=== PATIENT | female | born 1935 | race Caucasian/White ===

== ENCOUNTER 2017-03-15 20:56 | Emergency (ER) | payer OTHER, MEDICARE ==
[2017-03-15 21:18] VITALS: TEMP 97.2; BMI 27.8
--- NOTE | 2017-03-15 23:24 | PDOC ---
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 Patient states that she was backing out of the elevator with her mobile scouter as it tipped over to the right and she fell. Patient is now complaining of right rib cage pain. She denies any LOC. She denies chest pain, shortness of breath, headache and dizziness. She denies fever, chills, nausea, vomit, diarrhea and constipation. She denies dysuria, frequency, urgency and hematuria. Past surgical history: Right hip chronic wound seen at the wound center by Dr. Bailey, right total hip replacement (2012) and multiple spine surgeries ( fusion and 2 laminectomy) Social history: denies toxic habits PCP - Dr. Kamaljit Flowers at [facility] Allergy - vancomycin, cefazolin <Verito Kelly - Last Filed: 03/15/17 23:31> - General Chief Complaint: Injury Stated Complaint: FALL Time Seen by Provider: 03/15/17 21:21 Past History - Past Medical History Anemia: No Asthma: No Cancer: No Cardiac Disorders: No CVA: No COPD: No CHF: No Dementia: No Diabetes: No GI Disorders: No Disorders: No HTN: No Hypercholesterolemia: Yes Liver Disease: No Seizures: No Thyroid Disease: No - Surgical History Abdominal Surgery: No Appendectomy: No Cardiac Surgery: No Cholecystectomy: No Lung Surgery: No Neurologic Surgery: Yes (BACK SURGERY X 3) Orthopedic Surgery: Yes (RIGHT HIP REPLACEMENT) - Immunization History Immunization Up to Date: No - Psycho/Social/Smoking Cessation Hx Anxiety: No Suicidal Ideation: No Smoking History: Former smoker Have you smoked in the past 12 months: No Number of Cigarettes Smoked Daily: 10 If you are a former smoker, when did you quit?: 35 YEARS AGO Information on smoking cessation initiated: No Hx Alcohol Use: No Drug/Substance Use Hx: No Substance Use Type: None <Trudy Vyas - Last Filed: 03/15/17 23:24> <ZulmaleathaVerito - Last Filed: 03/15/17 23:31> - Past Medical History Allergies/Adverse Reactions: Allergies Allergy/AdvReac Type Severity Reaction Status Date / Time vancomycin Allergy Mild Hives Verified 09/04/16 07:54 cefazolin sodium [From Ancef] AdvReac Mild Itching Verified 09/04/16 07:54 Home Medications: Ambulatory Orders Ascorbate Calcium [Vitamin C] 500 mg PO DAILY 08/22/16 Calcium Carbonate [Calcium] 1,500 mg PO DAILY 08/22/16 Fluoxetine HCl 60 mg PO DAILY 08/22/16 Iron 18 mg PO DAILY 08/22/16 Lubiprostone [Amitiza] 24 mcg PO BID 08/22/16 Oxycodone HCl/Acetaminophen [Percocet 10-325 mg Tablet] 1 each PO QID 08/22/16 Oxycodone Sr [Oxycontin] 10 mg PO TID 08/22/16 Polyethylene Glycol 3350 [Miralax 255 gm Btl -] 17 gm PO DAILY 08/22/16 Simvastatin 20 mg PO HS 08/22/16 Sulfamethoxazole/Trimethoprim [Bactrim DS -] 1 tab PO BID 08/22/16 Diazepam [Valium] 5 mg PO DAILY PRN 09/04/16 Diphenhydramine [Benadryl -] 50 mg PO ONCE 09/04/16 Famotidine [Pepcid] 20 mg PO BID #14 tablet 09/04/16 Loratadine [Claritin -] 10 mg PO DAILY #7 tablet 09/04/16 Prednisone [Deltasone -] 40 mg PO DAILY #7 tablet 09/04/16 Review of Systems - Review of Systems Able to Perform ROS?: Yes Comments:: 03/15/17 23:27 CONSTITUTIONAL: Absent: fever, chills, diaphoresis, generalized weakness, malaise, loss of appetite HEENT: Absent: rhinorrhea, nasal congestion, throat pain, throat swelling, difficulty swallowing, mouth swelling, ear pain, eye pain, visual Changes CARDIOVASCULAR: Present: right ribcage pain Absent: chest pain, syncope, palpitations, irregular heart rate, lightheadedness , peripheral edema RESPIRATORY: Absent: cough, shortness of breath, dyspnea with exertion, orthopnea, wheezing, stridor, hemoptysis GASTROINTESTINAL: Absent: abdominal pain, abdominal distension, nausea, vomiting, diarrhea, constipation, melena, hematochezia GENITOURINARY: Absent: dysuria, frequency, urgency, hesitancy, hematuria, flank pain, genital pain MUSCULOSKELETAL: Absent: myalgia, arthralgia, joint swelling SKIN: Absent: rash, itching, pallor HEMATOLOGIC/IMMUNOLOGIC: Absent: easy bleeding, easy bruising, lymphadenopathy, frequent infections ENDOCRINE: Absent: unexplained weight gain, unexplained weight loss, heat intolerance, cold intolerance NEUROLOGIC: Absent: headache, focal weakness or paresthesias, dizziness, unsteady gait, seizure, mental status changes, bladder or bowel incontinence PSYCHIATRIC: Absent: anxiety, depression, suicidal or homicidal ideation, hallucinations. <Verito Kelly - Last Filed: 03/15/17 23:31> *Physical Exam - Vital Signs Last Vital Signs Temp Pulse Resp BP Pulse Ox 97.2 F L 96 H 19 154/92 99 03/15/17 21:10 03/15/17 21:10 03/15/17 21:10 03/15/17 21:10 03/15/17 21:10 <Trudy Vyas - Last Filed: 03/15/17 23:24> - Vital Signs Last Vital Signs Temp Pulse Resp BP Pulse Ox 97.2 F L 96 H 19 154/92 99 03/15/17 21:10 03/15/17 21:10 03/15/17 21:10 03/15/17 21:10 03/15/17 21:10 - Physical Exam Comments: 03/15/17 23:28 GENERAL: Well developed, well nourished. Awake and alert. No acute distress. HEENT: Normocephalic, atraumatic. PERRLA, EOMI. No conjunctival pallor. Sclera are non- icteric. Moist mucous membranes. Oropharynx is clear. NECK: Supple. Full ROM. No JVD. Carotid pulses 2+ and symmetric, without bruits. No thyromegaly. No lymphadenopathy. CARDIOVASCULAR: Regular rate and rhythm. No murmurs, rubs, or gallops. Distal pulses are 2+ and symmetric. CHEST: (+)Right anterior rib cage pain to palpation, no crepitus PULMONARY: No evidence of respiratory distress. Lungs clear to auscultation bilaterally. No wheezing, rales or rhonchi. ABDOMINAL: Soft. Non-tender. Non-distended. No rebound or guarding. No organomegaly. Normoactive bowel sounds. MUSCULOSKELETAL: Normal range of motion at the upper joints. No bony deformities. No CVA tenderness. EXTREMITIES: (+)+2 pitting edema No cyanosis. No clubbing. No calf tenderness. SKIN: (+)Right cubitus hip ulcer. Warm and dry. Normal capillary refill. No rashes. No jaundice. NEUROLOGICAL: (+)Non ambulatory. Alert, awake, appropriate. Cranial nerves 2-12 intact. . Normal speech. PSYCHIATRIC: Cooperative. Good eye contact. Appropriate mood and affect. <Verito Kelly - Last Filed: 03/15/17 23:31> ED Treatment Course - RADIOLOGY Radiology Studies Ordered: Category Date Time Status CHEST CT WITHOUT CONTRAST [CT] Stat CT Scan 03/15/17 21:27 Taken <Trudy Vyas - Last Filed: 03/15/17 23:24> - RADIOLOGY Radiology Studies Ordered: 03/15/17 23:26 THIS IS A PRELIMINARY REPORT FROM [facility] [employer] TEAM DIRECTOR IMAGES: 401 EXAM DATE AND TIME: 2017-03-15 21:58:25.0 EXAM: CT CHEST WITHOUT CONTRAST 5-6 mm nodule right upper lobe, advise follow-up. Few additional smaller nodules bilaterally. No pneumothorax, hemothorax or lung contusion. No pericardial effusion or mediastinal hematoma. No acute fracture. Chronic fractures left posterior rib 11 and right proximal rib 9. Chronic compression fractures T6 and L1. Scoliosis. Minimal emphysematous changes. 8 mm right thyroid nodule. Coronary artery disease. Large hiatal hernia containing entire stomach. THIS DOCUMENT HAS BEEN ELECTRONICALLY SIGNED Rupinder Nicole M.D. <Verito Kelly - Last Filed: 03/15/17 23:31> *DC/Admit/Observation/Transfer <Trudy Vyas - Last Filed: 03/15/17 23:24> - Attestations Scribe Attestion: 03/15/17 23:31 Documentation prepared by DIXON Chowdary, acting as medical billing manager for Trudy Vyas MD. <Verito Kelly - Last Filed: 03/15/17 23:31> Diagnosis at time of Disposition: Rib pain on right side - Discharge Dispostion Disposition: HOME Condition at time of disposition: Fair - Referrals Referrals: STAFF,NOT ON [Primary Care Provider] - - Patient Instructions Printed Discharge Instructions: DI for Rib Contusion Additional Instructions: Take your pain medication as needed
[2017-03-15 23:46] VITALS: BP 143/85; PULSE 72
== END 2017-03-15 23:45 ==
LOC: SUPCPDRO 20:56 → JER 20:56
DX: S20.211A Contusion of right front wall of thorax, initial encounter (principal); V00.811A Fall from moving wheelchair (powered), initial encounter; Y93.89 Activity, other specified; Y92.128 Other place in nursing home as the place of occurrence of the external cause; J45.909 Unspecified asthma, uncomplicated; M54.5 Low back pain; G89.29 Other chronic pain; Z96.641 Presence of right artificial hip joint
CPT/HCPCS: 71250-TC; 99282-25

== ENCOUNTER 2017-07-23 10:15 | Emergency (ER) | payer OTHER, MEDICARE ==
[2017-07-23 10:22] VITALS: BP 145/72; PULSE 78; TEMP 98.1; BMI 27.2
--- NOTE | 2017-07-23 11:33 | PDOC ---
History of Present Illness - General History Source: Patient Exam Limitations: No Limitations - History of Present Illness Initial Comments: 07/23/17 11:57 82 y/o F with a PMHx of asthma, chronic back pain and right total hip replacement (2012), MRSA, and chronic right shoulder pain presents to the ED with fecal impaction for about 2 weeks. Patient saw a rectal surgeon 2 days ago who advised her to do at home enemas or go to local ER. Patient states she did 3 enemas at home with minimal relief. She complains of associated bloating and gas, but is able to tolerate PO. She denies blood in stool. Denies nausea, vomiting. Denies chest pain, SOB. Denies headache, dizziness. <Francisca Cooper - Last Filed: 07/23/17 13:45> <Rosanna Nagy - Last Filed: 07/23/17 15:32> - General Chief Complaint: Constipation Stated Complaint: FECAL IMPACTION Time Seen by Provider: 07/23/17 11:03 Past History <Francisca Cooper - Last Filed: 07/23/17 13:45> - Past Medical History Anemia: No Asthma: No Cancer: No Cardiac Disorders: No CVA: No COPD: No CHF: No Dementia: No Diabetes: No GI Disorders: No Disorders: No HTN: No Hypercholesterolemia: Yes Liver Disease: No Seizures: No Thyroid Disease: No - Surgical History Abdominal Surgery: No Appendectomy: No Cardiac Surgery: No Cholecystectomy: No Lung Surgery: No Neurologic Surgery: Yes (BACK SURGERY X 3) Orthopedic Surgery: Yes (RIGHT HIP REPLACEMENT) - Immunization History Immunization Up to Date: No - Psycho/Social/Smoking Cessation Hx Anxiety: No Suicidal Ideation: No Smoking History: Former smoker Have you smoked in the past 12 months: No Number of Cigarettes Smoked Daily: 10 If you are a former smoker, when did you quit?: 35 YEARS AGO Information on smoking cessation initiated: No Hx Alcohol Use: No Drug/Substance Use Hx: No Substance Use Type: None <Rosanna Nagy - Last Filed: 07/23/17 15:32> - Past Medical History Allergies/Adverse Reactions: Allergies Allergy/AdvReac Type Severity Reaction Status Date / Time vancomycin Allergy Mild Hives Verified 07/23/17 10:17 cefazolin sodium [From Ancef] AdvReac Mild Itching Verified 07/23/17 10:17 Home Medications: Ambulatory Orders Ascorbate Calcium [Vitamin C] 500 mg PO DAILY 08/22/16 Calcium Carbonate [Calcium] 1,500 mg PO DAILY 08/22/16 Fluoxetine HCl 60 mg PO DAILY 08/22/16 Iron 18 mg PO DAILY 08/22/16 Lubiprostone [Amitiza] 24 mcg PO BID 08/22/16 Oxycodone HCl/Acetaminophen [Percocet 10-325 mg Tablet] 1 each PO QID 08/22/16 Polyethylene Glycol 3350 [Miralax 255 gm Btl -] 17 gm PO DAILY 08/22/16 Simvastatin 20 mg PO HS 08/22/16 Sulfamethoxazole/Trimethoprim [Bactrim DS -] 1 tab PO BID 08/22/16 Diazepam [Valium] 5 mg PO DAILY PRN 09/04/16 Diphenhydramine [Benadryl -] 50 mg PO ONCE 09/04/16 Famotidine [Pepcid] 20 mg PO BID #14 tablet 09/04/16 Loratadine [Claritin -] 10 mg PO DAILY #7 tablet 09/04/16 Review of Systems - Review of Systems Able to Perform ROS?: Yes Comments:: 07/23/17 11:57 GENERAL/CONSTITUTIONAL: No fever or chills. No weakness. HEAD, EYES, EARS, NOSE AND THROAT: No change in vision. No ear pain or discharge. No sore throat. CARDIOVASCULAR: No chest pain or shortness of breath. RESPIRATORY: No cough, wheezing, or hemoptysis. GASTROINTESTINAL: (+) fecal impaction. No nausea, vomiting, diarrhea. GENITOURINARY: No dysuria, frequency, or change in urination. MUSCULOSKELETAL: No joint or muscle swelling or pain. No neck or back pain. SKIN: No rash NEUROLOGIC: No headache, vertigo, loss of consciousness, or change in strength/ sensation. ENDOCRINE: No increased thirst. No abnormal weight change. HEMATOLOGIC/LYMPHATIC: No anemia, easy bleeding, or history of blood clots. ALLERGIC/IMMUNOLOGIC: No hives or skin allergy. <Francisca Cooper - Last Filed: 07/23/17 13:45> *Physical Exam - Vital Signs Last Vital Signs Temp Pulse Resp BP Pulse Ox 98.1 F 78 16 145/72 97 07/23/17 10:18 09/14/17 10:18 07/23/17 10:18 07/23/17 10:18 07/23/17 10:18 - Physical Exam Comments: 07/23/17 11:58 GENERAL: Awake, alert, and fully oriented, in no acute distress HEAD: No signs of trauma EYES: PERRLA, EOMI, sclera anicteric, conjunctiva clear ENT: Auricles normal inspection, hearing grossly normal, nares patent, oropharynx clear without exudates. Moist mucosa NECK: Normal ROM, supple, no lymphadenopathy, JVD, or masses LUNGS: Breath sounds equal, clear to auscultation bilaterally. No wheezes, and no crackles HEART: Regular rate and rhythm, normal S1 and S2, no murmurs, rubs or gallops ABDOMEN: Soft, nontender, normoactive bowel sounds. No guarding, no rebound. No masses EXTREMITIES: Wound open on right lateral hip with mild serous drainage. No erythema to the right hip. Normal range of motion, no edema. No clubbing or cyanosis. No cords. NEUROLOGICAL: Cranial nerves II through XII grossly intact. Normal speech, normal gait SKIN: Warm, Dry, normal turgor, no rashes or lesions noted. RECTAL: No masses. No stool in the vault. <Francisca Cooper - Last Filed: 07/23/17 13:45> - Vital Signs Last Vital Signs Temp Pulse Resp BP Pulse Ox 98.1 F 78 16 145/72 97 07/23/17 10:18 07/23/17 10:18 07/23/17 10:18 07/23/17 10:18 07/23/17 10:18 <Rosanna Nagy - Last Filed: 07/23/17 15:32> ED Treatment Course - RADIOLOGY Radiograph Interpretation: 07/23/17 13:46 Abdomen X-Ray Reported by Dr. Tracie Giron Impression: 1. Nonobstructive bowel gas pattern. No gross subdiaphragmatic free intraperitoneal air. 2. Large volume of impacted stool in the rectum. Disimpaction is recommended. 3. Partially imaged large hiatal hernia. 4. Compression collapse of multiple lumbar vertebral bodies, most severe at L1. These are age indeterminate, but may be chronic. Please correlate clinically. Comparison with prior imaging would be helpful, if available. <Francisca Cooper - Last Filed: 07/23/17 13:45> Medical Decision Making - Medical Decision Making 07/23/17 15:27 82yo female presents for eval of fecal impaction. -sent by rectal surgeon for disimpaction -rectal exam negative for stool in vault. will obtain xray for further eval 07/23/17 15:28 xray shows constipation and concern for fecal impaction, again, rectal exam negative for stool in vault. Pt passing gas. Pt without n/v. Discussed imaging results. Will give milk of mag and reassess. Pt requesting second opinion for GI eval. 07/23/17 15:29 re-eval: pt tolerating po. requesting to go home. Pt states she would rather have BM at home. Discussed reasons to return to the ED and need for followup. States she has another enema at home. Discussed need for GI eval. Answered all quesitons. Pt stable for d/c to home. <Rosanna Nagy - Last Filed: 07/23/17 15:32> *DC/Admit/Observation/Transfer - Attestations Scribe Attestion: 07/23/17 11:58 Documentation prepared by Francisca Cooper, acting as emergency medical technician basic for Rosanna Nagy DO. <Francisca Cooper - Last Filed: 07/23/17 13:45> - Discharge Dispostion Admit: No - Attestations Physician Attestion: 07/23/17 15:32 I, Dr. Rosanna Nagy DO, attest that this document has been prepared under my direction and personally reviewed by me in its entirety. I further attest, that it accurately reflects all work, treatment, procedures and medical decision -making performed by me. <Rosanna Nagy - Last Filed: 07/23/17 15:32> Diagnosis at time of Disposition: Constipation - Discharge Dispostion Disposition: HOME Condition at time of disposition: Stable - Referrals Referrals: Elmira Lopez MD [Primary Care Provider] - Daren Pelletier MD [Staff Physician] - - Patient Instructions Printed Discharge Instructions: DI for Constipation Additional Instructions: Please follow up with your PMD. Please follow up with GI. Please also call your neurologist/pain managment doctor to discuss constipation from narcotic use. Please return to the ED with any further concerns.
[2017-07-23] MEDS ORDERED: MAGNESIUM HYDROX 2400MG/30ML ORAL SUSPENSION 30 ML CUP PO ONE (13:45)
== END 2017-07-23 16:22 | disposition home or self-care (01) ==
LOC: JER 10:15
DX: K59.09 Other constipation (principal); M54.89 Other dorsalgia; M25.511 Pain in right shoulder; G89.29 Other chronic pain; Z96.641 Presence of right artificial hip joint; E78.00 Pure hypercholesterolemia, unspecified
CPT/HCPCS: 74020-TC; 99282-25

== ENCOUNTER 2017-08-06 12:24 | Emergency (ER) | payer OTHER, MEDICARE ==
[2017-08-06 12:45] VITALS: BMI 27.2
--- NOTE | 2017-08-06 15:01 | PDOC ---
History of Present Illness - General Chief Complaint: Revisit,Wound Recheck Stated Complaint: REVISIT/ WOUND INFECTION Time Seen by Provider: 08/06/17 12:57 History Source: Patient Exam Limitations: No Limitations - History of Present Illness Initial Comments: 08/06/17 14:55 82-year-old female presents the emergency room for evaluation of right hip wound. patient states had it excised packed and dressed by her wound care doctor, Dr. Bailey. states was changing the dressing this morning when he noted this mass coming out of the wound and was concerned so came to the ER for consultation. Patient denies pain to the area and denies decreased strength , edema, or fever. Patient states the past 10 years has had wound care treatment secondary to MRSA and infected hardware due to a hip replacement. Timing/Duration: 4-6 hours Severity: moderate Associated Symptoms: reports: denies symptoms Past History - Travel Traveled outside of the country in the last 30 days: No Close contact w/someone who was outside of country & ill: No - Past Medical History Allergies/Adverse Reactions: Allergies Allergy/AdvReac Type Severity Reaction Status Date / Time vancomycin Allergy Mild Hives Verified 08/06/17 12:39 cefazolin sodium [From Ancef] AdvReac Mild Itching Verified 08/06/17 12:39 Home Medications: Ambulatory Orders Ascorbate Calcium [Vitamin C] 500 mg PO DAILY 08/22/16 Calcium Carbonate [Calcium] 1,500 mg PO DAILY 08/22/16 Fluoxetine HCl 60 mg PO DAILY 08/22/16 Oxycodone HCl/Acetaminophen [Percocet 10-325 mg Tablet] 1 each PO QID 08/22/16 Polyethylene Glycol 3350 [Miralax 255 gm Btl -] 17 gm PO DAILY 08/22/16 Simvastatin 20 mg PO HS 08/22/16 Sulfamethoxazole/Trimethoprim [Bactrim DS -] 1 tab PO BID 08/22/16 Diazepam [Valium] 5 mg PO DAILY PRN 09/04/16 Diphenhydramine [Benadryl -] 50 mg PO ONCE 09/04/16 Famotidine [Pepcid] 20 mg PO BID #14 tablet 09/04/16 Loratadine [Claritin -] 10 mg PO DAILY #7 tablet 09/04/16 Anemia: No Asthma: No Cancer: No Cardiac Disorders: No CVA: No COPD: No CHF: No Dementia: No Diabetes: No GI Disorders: No Disorders: No HTN: No Hypercholesterolemia: Yes Liver Disease: No Seizures: No Thyroid Disease: No Other medical history: right hip wound, MRSA, hietal hernia - Surgical History Abdominal Surgery: No Appendectomy: No Cardiac Surgery: No Cholecystectomy: No Lung Surgery: No Neurologic Surgery: Yes (BACK SURGERY X 3) Orthopedic Surgery: Yes (RIGHT HIP REPLACEMENT) - Immunization History Immunization Up to Date: No - Suicide/Smoking/Psychosocial Hx Smoking History: Former smoker Have you smoked in the past 12 months: No Number of Cigarettes Smoked Daily: 10 If you are a former smoker, when did you quit?: 1974 Information on smoking cessation initiated: No Hx Alcohol Use: No Drug/Substance Use Hx: No Substance Use Type: None Patient Lives Alone: No Lives with/in: spouse/SO Review of Systems - Review of Systems Able to Perform ROS?: No Constitutional: No: Symptoms Reported Respiratory: No: Symptoms reported Cardiac (ROS): No: Symptoms Reported Musculoskeletal: No: Symptoms Reported Integumentary: Yes: Other Neurological: No: Symptoms reported Endocrine: No: Symptoms Reported Hematologic/Lymphatic: No: Symptoms Reported *Physical Exam - Vital Signs Last Vital Signs Temp Pulse Resp BP Pulse Ox 98.2 F 77 18 138/76 97 08/06/17 12:39 08/06/17 12:39 08/06/17 12:39 08/06/17 12:39 08/06/17 12:39 - Physical Exam General Appearance: Yes: Nourished, Appropriately Dressed. No: Apparent Distress Respiratory/Chest: positive: Lungs Clear, Normal Breath Sounds. negative: Respiratory Distress, Accessory Muscle Use Cardiovascular: positive: Regular Rhythm, Regular Rate. negative: Murmur Gastrointestinal/Abdominal: positive: Soft. negative: Tenderness Extremity: positive: Normal Range of Motion, Tender Integumentary: positive: Other (Noted granulating pink tissue mass approximately 4 inches in length 1 inch in diameter with whitish tissue surrounding the base of the protruding mass. ) Neurologic: positive: Normal Mood/Affect, Motor Strength 5/5 Medical Decision Making - Medical Decision Making 08/06/17 15:04 Patient here for evaluation of mass protruding from right hip wound that she had debrided yesterday by Dr. Bailey. Pictures sent to Dr. Bailey who states to apply a dry dressing and she will cauterize it tomorrow. *DC/Admit/Observation/Transfer Diagnosis at time of Disposition: Open wound of right lower leg Qualifiers: Encounter type: initial encounter Qualified Code(s): S81.801A - Unspecified open wound, right lower leg, initial encounter - Discharge Dispostion Disposition: HOME Condition at time of disposition: Good - Referrals Referrals: Elmira Lopez MD [Primary Care Provider] - Michael Bailey MD [Staff Physician] - - Patient Instructions Printed Discharge Instructions: How to Care for a Surgical Wound Additional Instructions: I has spoken to Dr. Bailey who recommended to go to the wound care clinic tomorrow at 2 p.m. for evaluation. Please only apply a dry sterile dressing to the area as per recommendations.
[2017-08-06 15:42] VITALS: BP 147/66; PULSE 73; TEMP 98
== END 2017-08-06 15:44 | disposition home or self-care (01) ==
LOC: JER 12:24
DX: S81.801A Unspecified open wound, right lower leg, initial encounter (principal)
CPT/HCPCS: 99281-25

== ENCOUNTER 2018-01-21 17:10 | Emergency (ER) | payer OTHER, MEDICARE ==
[2018-01-21 17:31] VITALS: TEMP 97.7; BMI 27.2
--- NOTE | 2018-01-21 17:31 | PDOC ---
History of Present Illness - General History Source: Patient Exam Limitations: No Limitations - History of Present Illness Initial Comments: 01/21/18 17:36 The patient is a 82 year old female with a significant PMH of deafness, HLD, and MRSA who presents to the emergency department s/p falling off an electric chair today and hitting the back of her head. The patient is now complaining of mild, constant, and persistent neck pain since the fall. The patient is also complaining of a small bruise on the left leg. The patient denies head lacerations, chest pain, shortness of breath, headache and dizziness. Denies fever, chills, nausea, vomit, diarrhea and constipation. Denies dysuria, frequency, urgency and hematuria. Allergies: vancomycin, cefazolin sodium Past surgical history: right hip replacement, back surgery x3 Social history: No reported alcohol, drug or cigarette use. <Yovana Molina - Last Filed: 01/21/18 17:41> <Billy Tolentino - Last Filed: 01/21/18 18:42> - General Chief Complaint: Injury Stated Complaint: FALL Time Seen by Provider: 01/21/18 17:31 Past History <Yovana Molina - Last Filed: 01/21/18 17:41> - Past Medical History Anemia: No Asthma: No Cancer: No Cardiac Disorders: No CVA: No COPD: No CHF: No Dementia: No Diabetes: No GI Disorders: No Disorders: No HTN: No Hypercholesterolemia: Yes Liver Disease: No Seizures: No Thyroid Disease: No - Surgical History Abdominal Surgery: No Appendectomy: No Cardiac Surgery: No Cholecystectomy: No Lung Surgery: No Neurologic Surgery: Yes (BACK SURGERY X 3) Orthopedic Surgery: Yes (RIGHT HIP REPLACEMENT) - Immunization History Immunization Up to Date: No - Suicide/Smoking/Psychosocial Hx Smoking History: Former smoker Have you smoked in the past 12 months: No Number of Cigarettes Smoked Daily: 10 If you are a former smoker, when did you quit?: 1974 Information on smoking cessation initiated: No Hx Alcohol Use: No Drug/Substance Use Hx: No Substance Use Type: None <Billy Tolentino - Last Filed: 01/21/18 18:42> - Past Medical History Allergies/Adverse Reactions: Allergies Allergy/AdvReac Type Severity Reaction Status Date / Time vancomycin Allergy Mild Hives Verified 01/21/18 17:26 cefazolin sodium [From Ancef] AdvReac Mild Itching Verified 01/21/18 17:26 Home Medications: Ambulatory Orders Ascorbate Calcium [Vitamin C] 500 mg PO DAILY 08/22/16 Calcium Carbonate [Calcium] 1,500 mg PO DAILY 08/22/16 Fluoxetine HCl 60 mg PO DAILY 08/22/16 Oxycodone HCl/Acetaminophen [Percocet 10-325 mg Tablet] 1 each PO QID 08/22/16 Polyethylene Glycol 3350 [Miralax 255 gm Btl -] 17 gm PO DAILY 08/22/16 Simvastatin 20 mg PO HS 08/22/16 Diazepam [Valium] 5 mg PO DAILY PRN 09/04/16 Diphenhydramine [Benadryl -] 50 mg PO ONCE 09/04/16 Famotidine [Pepcid] 20 mg PO BID #14 tablet 09/04/16 Loratadine [Claritin -] 10 mg PO DAILY #7 tablet 09/04/16 Doxycycline Calcium 100 mg PO BID 09/09/17 Dicloxacillin Sodium [Dynapen -] 250 mg PO Q6H 7 Days #56 capsule 11/11/17 Review of Systems - Review of Systems Able to Perform ROS?: Yes Comments:: 01/21/18 17:36 ROS: A complete review of 10 out of 10 review of systems is taken and is negative apart from what is previously mentioned below and in the HPI. <Yovana Molina - Last Filed: 01/21/18 17:41> *Physical Exam - Vital Signs Last Vital Signs Temp Pulse Resp BP Pulse Ox 97.7 F 96 H 20 168/92 96 01/21/18 17:26 01/21/18 17:26 01/21/18 17:26 01/21/18 17:26 01/21/18 17:26 - Physical Exam Comments: 01/21/18 17:35 Vitals: Triage vital signs reviewed General Appearance: No acute distress, well nourished, well developed Head: Atraumatic; no bumps or abrasions on the back of the head. Eyes: Pupils equal reactive round, extraocular movement intact Neck: (+) Midline neck tenderness. Cardiac: Regular rate and rhythm, no murmurs, no rubs, no gallops Lungs: Clear to auscultation bilateral, good air movement bilaterally Abdomen: Soft, nondistended, normal bowel sounds, nontender to palpation Extremities: Full range of motion to all extremities, no cyanosis, clubbing, or edema Skin: Warm and dry, no rashes or lesions, no rash, no petechiae Neuro: AOX3; Cranial Nerves 2-12 grossly intact, Strength intact to all extremities, Sensation intact to all extremities. Psych: Normal mood, normal affect <Yovana Molina - Last Filed: 01/21/18 17:41> - Vital Signs Last Vital Signs Temp Pulse Resp BP Pulse Ox 97.7 F 96 H 20 168/92 96 01/21/18 17:26 01/21/18 17:26 01/21/18 17:26 01/21/18 17:26 01/21/18 17:26 <Billy Tolentino - Last Filed: 01/21/18 18:42> Medical Decision Making - Medical Decision Making 01/21/18 18:41 82 years old past medical history significant for deafness hyperlipidemia MRSA infection to hip follows in our wound care clinic. 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 No weakness no numbness no loss of consciousness no significant head injury. Patient also sustained a bruise to her left lower extremity We will CT head and cervical spine x-ray lower extremity Dr. Sy to follow-up imaging reevaluate patient reassess and dispel. <Billy Tolentino - Last Filed: 01/21/18 18:42> *DC/Admit/Observation/Transfer - Attestations Scribe Attestion: 01/21/18 17:35 Documentation prepared by Yovana Molina, acting as medical oncology physician for Emergency Dept,Physician, . <Yovana Molina - Last Filed: 01/21/18 17:41> <Billy Tolentino - Last Filed: 01/21/18 18:42> Diagnosis at time of Disposition: Minor head injury Qualifiers: Encounter type: initial encounter Qualified Code(s): S09.90XA - Unspecified injury of head, initial encounter
--- NOTE | 2018-01-21 20:19 | PDOC ---
*Physical Exam - Vital Signs Last Vital Signs Temp Pulse Resp BP Pulse Ox 97.7 F 96 H 20 168/92 96 01/21/18 17:26 01/21/18 17:26 01/21/18 17:26 01/21/18 17:26 01/21/18 17:26 ED Treatment Course - Medications Given in the ED: ED Medications Discontinued Medications Generic Name Dose Route Start Last Admin Trade Name Freq PRN Reason Stop Dose Admin Oxycodone/Acetaminophen 1 combo 01/21/18 19:49 01/21/18 19:55 Percocet 5/325 - PO 01/21/18 19:50 1 combo ONCE ONE Administration *DC/Admit/Observation/Transfer Diagnosis at time of Disposition: Minor head injury Qualifiers: Encounter type: initial encounter Qualified Code(s): S09.90XA - Unspecified injury of head, initial encounter - Discharge Dispostion Disposition: HOME Condition at time of disposition: Stable Admit: No - Referrals Referrals: Vipin Rosa DO [Staff Physician] - - Patient Instructions Printed Discharge Instructions: DI for Closed Head Injury Additional Instructions: Continue taking your own pain medication. Apply ice to affected areas for ten minutes at a time 3 days as needed. Follow up with your doctor or the doctor referred to you here in the hospital. - Post Discharge Activity
[2018-01-21 21:14] VITALS: BP 166/89; PULSE 87
== END 2018-01-21 21:14 ==
LOC: JER 17:10
DX: S09.8XXA Other specified injuries of head, initial encounter (principal); E78.00 Pure hypercholesterolemia, unspecified; H91.93 Unspecified hearing loss, bilateral; Z86.14 Personal history of Methicillin resistant Staphylococcus aureus infection; V00.811A Fall from moving wheelchair (powered), initial encounter; Y92.410 Unspecified street and highway as the place of occurrence of the external cause; Y93.89 Activity, other specified; Y99.8 Other external cause status
CPT/HCPCS: 70450-TC; 72125-TC; 99282-25

== ENCOUNTER 2023-08-18 14:14 | Emergency (ER) | payer OTHER, MEDICARE ==
[2023-08-18 14:24] VITALS: BMI 25.2
[2023-08-18 17:01] LABS: HEMATOCRIT 27.7 % (32.4-45.2); HEMOGLOBIN 9.1 GM/dL (10.7-15.3); MCH 25.1 pg (25.7-33.7); MEAN CELL VOLUME 76.2 fl (80-96); MEAN PLT VOLUME 7.5 fl (7.5-11.1); PLATELET COUNT 330 10^3/uL (134-434); RBC 3.63 M/mm3 (3.60-5.2); RDW 17.7 % (11.6-15.6); WHITE BLOOD COUNT 5.4 K/mm3 (4.0-10.0)
[2023-08-18 17:10] LABS: INR 1.02 (0.83-1.09); PROTHROMBIN TIME (PATIENT) 11.8 SEC (9.7-13.0)
[2023-08-18 17:12] LABS: ACTIVATED PTT 34.4 SECONDS (25.2-36.5)
[2023-08-18 17:30] LABS: POTASSIUM 4.4 mmol/L (3.5-5.1)
[2023-08-18 17:32] LABS: ALBUMIN 3.1 g/dl (3.4-5.0); CALCIUM 8.5 mg/dL (8.5-10.1)
[2023-08-18 17:33] LABS: BLOOD UREA NITROGEN 10.6 mg/dL (7-18)
[2023-08-18 17:35] LABS: CREATININE 0.7 mg/dL (0.55-1.3)
[2023-08-18 17:37] LABS: BILIRUBIN,TOTAL 0.3 mg/dL (0.2-1)
[2023-08-18 19:05] VITALS: BP 158/77; PULSE 83; RESP 20; TEMP 98.5
[2023-08-18] MEDS ORDERED: ACETAMINOPHEN 500 MG TABLET (FP) PO STA (20:59)
[2023-08-18 21:03] LABS: URINE APPEARANCE CLEAR; URINE BILIRUBIN NEGATIVE (NEGATIVE); URINE COLOR YELLOW; URINE GLUCOSE (UA) NEGATIVE (NEGATIVE); URINE KETONE NEGATIVE (NEGATIVE); URINE LEUK ESTERASE NEGATIVE (NEGATIVE); URINE NITRITE NEGATIVE (NEGATIVE); URINE PROTEIN NEGATIVE (NEGATIVE); URINE UROBILINOGEN 0.2 mg/dL (0.2-1.0)
[2023-08-18] MEDS ORDERED: ACETAMINOPHEN 325 MG TABLET (FP) ONE (21:04)
== END 2023-08-18 21:23 | disposition home or self-care (01) ==
LOC: JER 14:14
DX: R51.9 Headache, unspecified (principal); R42 Dizziness and giddiness; R53.1 Weakness; M54.9 Dorsalgia, unspecified; Z20.822 Contact with and (suspected) exposure to COVID-19
CPT/HCPCS: 0241U-QW; 36415; 71045-TC-FY; 80053; 81003; 84484; 85027; 85610; 85730; 86850; 86870; 86900; 86901; 86902; 87086; 87186; 93005; 93010; 99285-25

== ENCOUNTER 2023-08-31 16:18 | Inpatient (IN) | payer OTHER, MEDICARE ==
[2023-08-31 16:53] VITALS: BMI 25.2
[2023-08-31] MEDS ORDERED: ONDANSETRON 4 MG/2 ML VIAL IVPUSH ONE (17:20)
[2023-08-31] MEDS ORDERED: SODIUM CHLORIDE 500 ML IV STA (17:23)
[2023-08-31 18:11] LABS: VENOUS BASE EXCESS -3.6 mmol/L (-2-2); VENOUS O2 SATURATION 81.2 % (70-80); VENOUS PCO2 29.7 mmHg (38-52); VENOUS PH 7.437 (7.310-7.410)
[2023-08-31 18:14] LABS: BASO % 0.2 % (0-2.0); EOS % 0.1 % (0-4.5); HEMATOCRIT 30.9 % (32.4-45.2); HEMOGLOBIN 10.3 GM/dL (10.7-15.3); LYMPH % 9.8 % (8-40); MCH 24.6 pg (25.7-33.7); MCHC 33.5 g/dl (32.0-36.0); MEAN CELL VOLUME 73.5 fl (80-96); MEAN PLT VOLUME 7.1 fl (7.5-11.1); MONO % 3.9 % (3.8-10.2); PLATELET COUNT 439 10^3/uL (134-434); RDW 17.9 % (11.6-15.6); WHITE BLOOD COUNT 6.7 K/mm3 (4.0-10.0)
[2023-08-31] MEDS ORDERED: ONDANSETRON 4 MG/2 ML VIAL ONE (18:18)
[2023-08-31 18:21] LABS: INR 1.03 (0.83-1.09)
[2023-08-31 18:24] LABS: ACTIVATED PTT 32.4 SECONDS (25.2-36.5)
[2023-08-31 18:33] LABS: CHLORIDE 84 mmol/L (98-107); POTASSIUM 3.9 mmol/L (3.5-5.1)
[2023-08-31 18:35] LABS: ALBUMIN 3.3 g/dl (3.4-5.0); CALCIUM 8.1 mg/dL (8.5-10.1); LIPASE 65 U/L (73-393)
[2023-08-31 18:36] LABS: BLOOD UREA NITROGEN 12.6 mg/dL (7-18); CO2 21 mmol/L (21-32); GLUCOSE,RANDOM 105 mg/dL (74-106)
[2023-08-31 18:38] LABS: CREATININE 0.5 mg/dL (0.55-1.3); SGOT/AST 10 U/L (15-37)
[2023-08-31 18:39] LABS: SGPT/ALT 11 U/L (13-61)
[2023-08-31 18:40] LABS: EPI CELLS 5 /uL (0-25.1); HYALINE CASTS 0 /uL (0-3.1); URINE APPEARANCE CLEAR; URINE BACTERIA 1 /uL (0-1359); URINE BILIRUBIN NEGATIVE (NEGATIVE); URINE COLOR YELLOW; URINE GLUCOSE (UA) NEGATIVE (NEGATIVE); URINE KETONE 2+ (NEGATIVE); URINE LEUK ESTERASE NEGATIVE (NEGATIVE); URINE NITRITE NEGATIVE (NEGATIVE); URINE PROTEIN 2+ (NEGATIVE); URINE RBC 28 /uL (0-23.9); URINE UROBILINOGEN 0.2 mg/dL (0.2-1.0); URINE WBC 3 /uL (0-25.8)
[2023-08-31 18:40] LABS: BILIRUBIN,TOTAL 0.6 mg/dL (0.2-1); TOT PROT 7.6 g/dl (6.4-8.2)
[2023-08-31 18:41] LABS: ALK PHOS 112 U/L (45-117)
[2023-08-31 18:42] LABS: ANION GAP 12 mmol/L (4-13); SODIUM 117 mmol/L (136-145)
[2023-08-31] MEDS: SODIUM CHLORIDE 500 ML IV STA ×2 (18:44→18:59)
[2023-08-31] MEDS ORDERED: SODIUM CHLORIDE 1,000 ML IV STA (18:49)
[2023-08-31] MEDS ORDERED: FAMOTIDINE 20 MG/50 ML IVPB 20 MG/50 ML MG IVPB ONE ×2 (19:47→20:02)
[2023-08-31] MEDS ORDERED: METOCLOPRAMIDE HCL INJECTION 10 MG/2 ML VIAL IVPB ONE (20:35)
[2023-08-31 20:50] LABS: POTASSIUM 3.8 mmol/L (3.5-5.1)
[2023-08-31 20:51] LABS: BLOOD UREA NITROGEN 11.9 mg/dL (7-18); CALCIUM 7.4 mg/dL (8.5-10.1)
[2023-08-31 20:55] LABS: CREATININE 0.4 mg/dL (0.55-1.3)
[2023-08-31] MEDS ORDERED: METOCLOPRAMIDE HCL INJECTION 10 MG/2 ML VIAL ONE (21:16)
[2023-08-31] MEDS ORDERED: SODIUM CHLORIDE 1,000 ML IV SCH (22:00)
[2023-08-31] MEDS ORDERED: MELATONIN 5 MG TABLETS ONE (23:33)
[2023-09-01] MEDS ORDERED: hydrOXYzine PAMOATE 25 MG CAPSULE (FP) PO ONE ×3 (01:17→02:30)
[2023-09-01] MEDS ORDERED: ONDANSETRON 4 MG/2 ML VIAL IVPUSH ONE ×2 (01:47→05:16)
[2023-09-01] MEDS ORDERED: hydrOXYzine PAMOATE 50 MG CAPSULE (FP) ONE (01:54)
[2023-09-01] MEDS ORDERED: morphine CARPU-JECT 2 MG/1 ML DISP.SYRIN IVPUSH ONE (02:48)
[2023-09-01] MEDS ORDERED: ONDANSETRON 4 MG/2 ML VIAL ONE (05:18)
[2023-09-01 06:25] LABS: BASO % 0.2 % (0-2.0); HEMATOCRIT 27.4 % (32.4-45.2); HEMOGLOBIN 8.9 GM/dL (10.7-15.3); LYMPH % 7.6 % (8-40); MCH 24.5 pg (25.7-33.7); MCHC 32.5 g/dl (32.0-36.0); MEAN CELL VOLUME 75.4 fl (80-96); MEAN PLT VOLUME 7.4 fl (7.5-11.1); MONO % 6.7 % (3.8-10.2); NEUT % 85.5 % (42.8-82.8); PLATELET COUNT 406 10^3/uL (134-434); RBC 3.63 M/mm3 (3.60-5.2); RDW 17.8 % (11.6-15.6); WHITE BLOOD COUNT 8.9 K/mm3 (4.0-10.0)
[2023-09-01 06:49] LABS: POTASSIUM 3.4 mmol/L (3.5-5.1)
[2023-09-01 06:56] LABS: CALCIUM 7.4 mg/dL (8.5-10.1)
[2023-09-01 06:57] LABS: BLOOD UREA NITROGEN 12.1 mg/dL (7-18); MAGNESIUM 1.6 mg/dL (1.8-2.4)
[2023-09-01 07:00] LABS: CREATININE 0.4 mg/dL (0.55-1.3); PHOSPHOROUS 1.8 mg/dL (2.5-4.9)
[2023-09-01] MEDS ORDERED: ENOXAPARIN NA (PORCINE) 40 MG/0.4 ML DISP.SYRIN SQ ONE (09:57)
[2023-09-01] MEDS: ENOXAPARIN NA (PORCINE) 40 MG/0.4 ML DISP.SYRIN SQ SCH (10:11)
[2023-09-01] MEDS ORDERED: POTASSIUM PHOSPHATE 30 MM in SODIUM CHLORIDE 500 ML IVPB ONE (10:16)
[2023-09-01] MEDS ORDERED: MAGNESIUM 2GM/50ML STERILE WATER IVPB IVPB ONE (10:17)
[2023-09-01] MEDS ORDERED: MAGNESIUM SULFATE IN WATER 2 GM/50 ML IVPB IVPB ONE (11:10)
[2023-09-01] MEDS ORDERED: ALBUTEROL SO4 0.083% IH SOL 2.5 MG/3 ML VIAL.NEB. NEB PRN ×2 (12:49→14:55)
[2023-09-01] MEDS ORDERED: MAGNESIUM SULF 50% (8.12 MEQ/2 ML-1 GM VIAL) IVPB ONE (13:36)
[2023-09-01] MEDS ORDERED: ACETAMINOPHEN 325 MG TABLET (FP) ONE (14:16)
[2023-09-01] MEDS: ACETAMINOPHEN 325 MG TABLET (FP) PO PRN ×2 (14:18→23:49)
[2023-09-01] MEDS: SODIUM CHLORIDE 1,000 ML with POTASSIUM CHLORIDE 10 MEQ IV SCH ×2 (15:09→23:57)
[2023-09-01] MEDS ORDERED: ACETAMINOPHEN 325 MG TABLET (FP) PO PRN (15:17)
[2023-09-01] MEDS ORDERED: oxyCODONE HCL 5 MG TABLET PO PRN (15:17)
[2023-09-01] MEDS ORDERED: SODIUM CHLORIDE 1,000 ML IV SCH (16:00)
[2023-09-01] MEDS: MELATONIN 5 MG TABLETS PO SCH (21:55)
[2023-09-01] MEDS: traZODone HCL 50 MG TABLET (FP) PO SCH (21:55)
[2023-09-01] MEDS ORDERED: MELATONIN 5 MG TABLETS PO SCH (22:00)
[2023-09-02] MEDS: oxyCODONE HCL 5 MG TABLET PO PRN ×2 (01:25→10:55)
[2023-09-02 02:12] LABS: PH,URINE 6.5 (5.0-8.0); URINE APPEARANCE CLEAR; URINE BILIRUBIN NEGATIVE (NEGATIVE); URINE COLOR YELLOW; URINE GLUCOSE (UA) NEGATIVE (NEGATIVE); URINE KETONE TRACE (NEGATIVE); URINE LEUK ESTERASE NEGATIVE (NEGATIVE); URINE NITRITE NEGATIVE (NEGATIVE); URINE PROTEIN NEGATIVE (NEGATIVE); URINE UROBILINOGEN 0.2 mg/dL (0.2-1.0)
[2023-09-02] MEDS: SODIUM CHLORIDE 1,000 ML with POTASSIUM CHLORIDE 10 MEQ IV SCH (07:25)
[2023-09-02] MEDS ORDERED: SODIUM CHLORIDE 1,000 ML IV SCH ×2 (08:15→11:35)
[2023-09-02 08:31] LABS: POTASSIUM 3.7 mmol/L (3.5-5.1)
[2023-09-02 08:32] LABS: CALCIUM 7.7 mg/dL (8.5-10.1)
[2023-09-02 08:33] LABS: BLOOD UREA NITROGEN 9.6 mg/dL (7-18); MAGNESIUM 2.4 mg/dL (1.8-2.4)
[2023-09-02 08:36] LABS: CREATININE 0.5 mg/dL (0.55-1.3); PHOSPHOROUS 2.8 mg/dL (2.5-4.9)
[2023-09-02 08:38] LABS: BILIRUBIN,TOTAL 0.4 mg/dL (0.2-1); TOT PROT 6.6 g/dl (6.4-8.2)
[2023-09-02] MEDS: DOXYCYCLINE HYCLATE 100 MG CAPSULE PO SCH ×2 (10:22→17:01)
[2023-09-02] MEDS: ENOXAPARIN NA (PORCINE) 40 MG/0.4 ML DISP.SYRIN SQ SCH (10:23)
[2023-09-02] MEDS: ACETAMINOPHEN 325 MG TABLET (FP) PO PRN (10:56)
[2023-09-02] MEDS: MELATONIN 5 MG TABLETS PO SCH (22:53)
[2023-09-02] MEDS: traZODone HCL 50 MG TABLET (FP) PO SCH (22:53)
[2023-09-03] MEDS: oxyCODONE HCL 5 MG TABLET PO PRN ×3 (00:56→22:01)
[2023-09-03 06:46] LABS: HEMATOCRIT 26.5 % (32.4-45.2); HEMOGLOBIN 8.5 GM/dL (10.7-15.3); MCH 24.6 pg (25.7-33.7); MEAN CELL VOLUME 76.8 fl (80-96); MEAN PLT VOLUME 7.5 fl (7.5-11.1); PLATELET COUNT 310 10^3/uL (134-434); RBC 3.45 M/mm3 (3.60-5.2); RDW 18.1 % (11.6-15.6); WHITE BLOOD COUNT 5.9 K/mm3 (4.0-10.0)
[2023-09-03 07:33] LABS: POTASSIUM 3.9 mmol/L (3.5-5.1)
[2023-09-03 07:40] LABS: ALBUMIN 2.7 g/dl (3.4-5.0); CALCIUM 7.3 mg/dL (8.5-10.1); MAGNESIUM 2.2 mg/dL (1.8-2.4)
[2023-09-03 07:42] LABS: PHOSPHOROUS 1.9 mg/dL (2.5-4.9)
[2023-09-03 07:43] LABS: BILIRUBIN,TOTAL 0.2 mg/dL (0.2-1); CREATININE 0.6 mg/dL (0.55-1.3); TOT PROT 5.7 g/dl (6.4-8.2)
[2023-09-03] MEDS ORDERED: NAPH,MB-DB/K PH,MBDB POWDER PACKET PO ONE (09:46)
[2023-09-03] MEDS: ENOXAPARIN NA (PORCINE) 40 MG/0.4 ML DISP.SYRIN SQ SCH (10:37)
[2023-09-03] MEDS: DOXYCYCLINE HYCLATE 100 MG CAPSULE PO SCH ×2 (10:37→17:50)
[2023-09-03] MEDS: ACETAMINOPHEN 325 MG TABLET (FP) PO PRN (10:44)
[2023-09-03] MEDS: SODIUM CHLORIDE 1,000 ML IV SCH ×2 (13:16→22:43)
[2023-09-03 16:18] LABS: POTASSIUM 4.3 mmol/L (3.5-5.1)
[2023-09-03 16:19] LABS: CALCIUM 7.4 mg/dL (8.5-10.1)
[2023-09-03 16:20] LABS: BLOOD UREA NITROGEN 24.4 mg/dL (7-18)
[2023-09-03 16:23] LABS: CREATININE 0.6 mg/dL (0.55-1.3)
[2023-09-03] MEDS: MELATONIN 5 MG TABLETS PO SCH (22:00)
[2023-09-03] MEDS: traZODone HCL 50 MG TABLET (FP) PO SCH (22:00)
[2023-09-04 08:03] LABS: HEMATOCRIT 25.6 % (32.4-45.2); HEMOGLOBIN 8.1 GM/dL (10.7-15.3); MCH 24.3 pg (25.7-33.7); MCHC 31.7 g/dl (32.0-36.0); MEAN CELL VOLUME 76.6 fl (80-96); MEAN PLT VOLUME 7.3 fl (7.5-11.1); PLATELET COUNT 309 10^3/uL (134-434); RBC 3.35 M/mm3 (3.60-5.2); RDW 18.8 % (11.6-15.6); WHITE BLOOD COUNT 4.4 K/mm3 (4.0-10.0)
[2023-09-04 08:35] LABS: POTASSIUM 4.6 mmol/L (3.5-5.1)
[2023-09-04 08:39] LABS: ALBUMIN 2.7 g/dl (3.4-5.0); BLOOD UREA NITROGEN 22.2 mg/dL (7-18); CALCIUM 7.2 mg/dL (8.5-10.1); MAGNESIUM 1.9 mg/dL (1.8-2.4)
[2023-09-04 08:42] LABS: PHOSPHOROUS 1.9 mg/dL (2.5-4.9)
[2023-09-04 08:43] LABS: CREATININE 0.6 mg/dL (0.55-1.3)
[2023-09-04 08:44] LABS: BILIRUBIN,TOTAL 0.3 mg/dL (0.2-1); TOT PROT 5.7 g/dl (6.4-8.2)
[2023-09-04] MEDS: DOXYCYCLINE HYCLATE 100 MG CAPSULE PO SCH (09:22)
[2023-09-04] MEDS: ENOXAPARIN NA (PORCINE) 40 MG/0.4 ML DISP.SYRIN SQ SCH (09:22)
[2023-09-04] MEDS ORDERED: LOSARTAN POTASSIUM 50 MG TABLET PO SCH (10:00)
[2023-09-04] MEDS ORDERED: POLYETHYLENE GLYCOL (HEALTHYLAX) 3350 17 GM PACKET PO ONE (10:15)
[2023-09-04] MEDS: oxyCODONE HCL 5 MG TABLET PO PRN (10:30)
[2023-09-04] MEDS: NAPH,MB-DB/K PH,MBDB POWDER PACKET PO SCH ×2 (11:30→15:02)
[2023-09-04 15:12] VITALS: RESP 18
[2023-09-04 15:38] VITALS: BP 130/69; PULSE 77; TEMP 98
== END 2023-09-04 15:46 | disposition home or self-care (01) | DRG 641 ==
LOC: JER 16:18 → JERBED 18:50 → J4S 09-01 15:30
PROVIDERS: ADMIT Internal Medicine; ATTEND Internal Medicine
DX: E87.1 Hypo-osmolality and hyponatremia (principal); M00.9 Pyogenic arthritis, unspecified; J45.909 Unspecified asthma, uncomplicated; I10 Essential (primary) hypertension; H35.30 Unspecified macular degeneration; S71.001A Unspecified open wound, right hip, initial encounter; D50.9 Iron deficiency anemia, unspecified; E78.5 Hyperlipidemia, unspecified; E87.8 Other disorders of electrolyte and fluid balance, not elsewhere classified; K52.9 Noninfective gastroenteritis and colitis, unspecified; X58.XXXA Exposure to other specified factors, initial encounter; Y93.9 Activity, unspecified; Y92.9 Unspecified place or not applicable; Y99.9 Unspecified external cause status
CPT/HCPCS: 0241U-QW; 36415; 71045-TC-FY; 74177-TC; 80048; 80053; 80061; 81003; 82803; 83605; 83690; 83735; 83880; 84100; 84443; 84484; 85025; 85027; 85610; 85730; 87040; 87070; 87081; 87086; 87205; 87635; 93005; 93010; 97116-GP; 97161-GP; 99285-25; Q9967

== ENCOUNTER 2023-09-07 10:57 | Inpatient (IN) | payer OTHER, MEDICARE ==
[2023-09-07 11:17] VITALS: BMI 25.2
[2023-09-07] MEDS ORDERED: ONDANSETRON 4 MG/2 ML VIAL IVPUSH ONE (11:35)
[2023-09-07] MEDS ORDERED: LOSARTAN POTASSIUM 50 MG TABLET PO ONE (11:40)
[2023-09-07] MEDS ORDERED: SODIUM CHLORIDE 0.9% 500 ML INFUS.BAG IV ONE (11:43)
[2023-09-07] MEDS ORDERED: ONDANSETRON 4 MG/2 ML VIAL ONE (11:52)
[2023-09-07] MEDS ORDERED: LOSARTAN POTASSIUM 50 MG TABLET ONE ×2 (11:56→11:59)
[2023-09-07 12:15] LABS: BASO % 0.5 % (0-2.0); EOS % 0.1 % (0-4.5); HEMATOCRIT 29.4 % (32.4-45.2); HEMOGLOBIN 9.5 GM/dL (10.7-15.3); LYMPH % 13.3 % (8-40); MCH 24.3 pg (25.7-33.7); MCHC 32.2 g/dl (32.0-36.0); MEAN CELL VOLUME 75.5 fl (80-96); MONO % 8.9 % (3.8-10.2); NEUT % 77.2 % (42.8-82.8); PLATELET COUNT 372 10^3/uL (134-434); RDW 18.3 % (11.6-15.6)
[2023-09-07 12:54] LABS: CHLORIDE 84 mmol/L (98-107)
[2023-09-07 12:57] LABS: ALBUMIN 3.2 g/dl (3.4-5.0); BLOOD UREA NITROGEN 8.4 mg/dL (7-18); CALCIUM 7.8 mg/dL (8.5-10.1); CO2 22 mmol/L (21-32); GLUCOSE,RANDOM 106 mg/dL (74-106); LIPASE 49 U/L (73-393); MAGNESIUM 1.7 mg/dL (1.8-2.4)
[2023-09-07 13:00] LABS: CREATININE 0.5 mg/dL (0.55-1.3); PHOSPHOROUS 1.8 mg/dL (2.5-4.9); SGOT/AST 12 U/L (15-37); SGPT/ALT 12 U/L (13-61)
[2023-09-07 13:01] LABS: BILIRUBIN,TOTAL 0.6 mg/dL (0.2-1)
[2023-09-07 13:02] LABS: TOT PROT 6.8 g/dl (6.4-8.2)
[2023-09-07] MEDS ORDERED: ACETAMINOPHEN 1000 MG/100 ML BAG IVPB ONE (13:02)
[2023-09-07 13:03] LABS: ALK PHOS 100 U/L (45-117)
[2023-09-07 13:05] LABS: ANION GAP 12 mmol/L (4-13); SODIUM 118 mmol/L (136-145)
[2023-09-07] MEDS ORDERED: ACETAMINOPHEN INJECTION 100 ML IVPB ONE (13:08)
[2023-09-07 13:33] LABS: PH,URINE 7.5 (5.0-8.0); URINE APPEARANCE CLEAR; URINE BILIRUBIN NEGATIVE (NEGATIVE); URINE COLOR YELLOW; URINE GLUCOSE (UA) NEGATIVE (NEGATIVE); URINE KETONE 1+ (NEGATIVE); URINE LEUK ESTERASE NEGATIVE (NEGATIVE); URINE NITRITE NEGATIVE (NEGATIVE); URINE PROTEIN TRACE (NEGATIVE); URINE UROBILINOGEN 0.2 mg/dL (0.2-1.0)
[2023-09-07] MEDS ORDERED: oxyCODONE HCL 5 MG TABLET PO ONE ×2 (14:38→16:19)
[2023-09-07] MEDS ORDERED: oxyCODONE HCL 5 MG TABLET ONE ×2 (14:45→16:21)
[2023-09-07 15:05] LABS: POTASSIUM 4.1 mmol/L (3.5-5.1)
[2023-09-07 15:08] LABS: BLOOD UREA NITROGEN 7.6 mg/dL (7-18); CALCIUM 7.4 mg/dL (8.5-10.1)
[2023-09-07 15:11] LABS: CREATININE 0.4 mg/dL (0.55-1.3)
[2023-09-07 15:13] LABS: BILIRUBIN,TOTAL 0.6 mg/dL (0.2-1); TOT PROT 6.5 g/dl (6.4-8.2)
[2023-09-07] MEDS ORDERED: MAGNESIUM SULF 50% (8.12 MEQ/2 ML-1 GM VIAL) IVPB ONE (16:10)
[2023-09-07] MEDS: SODIUM CHLORIDE 1,000 ML IV SCH ×2 (16:15→16:47)
[2023-09-07] MEDS ORDERED: MAGNESIUM SULFATE IN WATER 2 GM/50 ML IVPB IVPB ONE (16:18)
[2023-09-07] MEDS ORDERED: TRIMETHOBENZAMIDE HCL 200MG/2ML INJ IM PRN (16:19)
[2023-09-07] MEDS ORDERED: ALBUTEROL SO4 0.083% IH SOL 2.5 MG/3 ML VIAL.NEB. NEB PRN (16:28)
[2023-09-07] MEDS ORDERED: SODIUM CHLORIDE 1,000 ML IV SCH (16:30)
[2023-09-07] MEDS ORDERED: MECLIZINE HCL 12.5 MG TABLET PO SCH (16:30)
[2023-09-07] MEDS ORDERED: POTASSIUM PHOSPHATE 15 MM in SODIUM CHLORIDE 250 ML IVPB ONE (16:30)
[2023-09-07] MEDS ORDERED: NAPH,MB-DB/K PH,MBDB POWDER PACKET PO ONE (16:31)
[2023-09-07] MEDS ORDERED: NAPH,MB-DB/K PH,MBDB POWDER PACKET ONE (16:49)
[2023-09-07] MEDS ORDERED: DOXYCYCLINE HYCLATE 100 MG CAPSULE PO ONE (18:30)
[2023-09-07] MEDS: DOXYCYCLINE HYCLATE 100 MG CAPSULE PO SCH (18:33)
[2023-09-07 18:55] LABS: CREATININE, URINE RANDOM < 13.0 mg/dL (30-150)
[2023-09-07 19:59] LABS: POTASSIUM 4.1 mmol/L (3.5-5.1)
[2023-09-07 20:05] LABS: CALCIUM 7.3 mg/dL (8.5-10.1)
[2023-09-07 20:06] LABS: BLOOD UREA NITROGEN 6.2 mg/dL (7-18)
[2023-09-07 20:09] LABS: CREATININE 0.4 mg/dL (0.55-1.3)
[2023-09-07] MEDS ORDERED: PREGABALIN 100 MG CAPSULE ONE (20:30)
[2023-09-07] MEDS ORDERED: DOCUSATE SODIUM 100 MG CAPSULE (FP) PO ONE (20:30)
[2023-09-07] MEDS ORDERED: SENNOSIDES 8.6MG TABLET (FP) PO ONE (20:30)
[2023-09-07] MEDS ORDERED: BACLOFEN 10 MG TABLET (FP) ONE (20:30)
[2023-09-07] MEDS ORDERED: traZODone HCL 50 MG TABLET (FP) ONE (20:31)
[2023-09-07] MEDS: ARTIFICIAL TEARS (POLYVINYL ALCOHOL) OPTH DROPS OU SCH (21:23)
[2023-09-07] MEDS: traZODone HCL 50 MG TABLET (FP) PO SCH (21:24)
[2023-09-07] MEDS: DOCUSATE SODIUM 100 MG CAPSULE (FP) PO SCH (21:24)
[2023-09-07] MEDS: MELATONIN 1 MG TABLET PO SCH (21:25)
[2023-09-07] MEDS: ATORVASTATIN CA 10 MG TABLET (FP) PO SCH (21:25)
[2023-09-07] MEDS: BACLOFEN 10 MG TABLET (FP) PO SCH (21:25)
[2023-09-07] MEDS: BUDESONIDE/FORMETEROL FUMARATE 160/4.5 mcg INHALER IH SCH (21:25)
[2023-09-07] MEDS: SENNOSIDES 8.6MG TABLET (FP) PO SCH (21:25)
[2023-09-07] MEDS: PREGABALIN 100 MG CAPSULE PO SCH (21:25)
[2023-09-08] MEDS ORDERED: ACETAMINOPHEN 1000 MG/100 ML BAG IVPB ONE (06:10)
[2023-09-08] MEDS: PREGABALIN 100 MG CAPSULE PO SCH ×3 (06:24→22:24)
[2023-09-08 09:31] LABS: BASO % 0.6 % (0-2.0); EOS % 0.6 % (0-4.5); HEMOGLOBIN 8.3 GM/dL (10.7-15.3); LYMPH % 23.1 % (8-40); MCHC 32.9 g/dl (32.0-36.0); MEAN CELL VOLUME 75.9 fl (80-96); MEAN PLT VOLUME 7.3 fl (7.5-11.1); MONO % 19.8 % (3.8-10.2); NEUT % 55.9 % (42.8-82.8); PLATELET COUNT 329 10^3/uL (134-434); RDW 19.1 % (11.6-15.6); WHITE BLOOD COUNT 3.5 K/mm3 (4.0-10.0)
[2023-09-08 09:50] LABS: CHLORIDE 98 mmol/L (98-107); POTASSIUM 3.9 mmol/L (3.5-5.1); SODIUM 127 mmol/L (136-145)
[2023-09-08 09:54] LABS: ALBUMIN 2.6 g/dl (3.4-5.0)
[2023-09-08 10:00] LABS: GLUCOSE,RANDOM 90 mg/dL (74-106)
[2023-09-08] MEDS ORDERED: PATIENT'S OWN MEDICATION (NON-FORMULARY) (Calcium Citrate [Calcium Citrate] 200 MG Tablet) PO SCH (10:00)
[2023-09-08 10:02] LABS: ANION GAP 7 mmol/L (4-13); CO2 23 mmol/L (21-32); MAGNESIUM 2.3 mg/dL (1.8-2.4); PHOSPHOROUS 3.5 mg/dL (2.5-4.9); SGOT/AST 9 U/L (15-37)
[2023-09-08 10:03] LABS: SGPT/ALT 10 U/L (13-61)
[2023-09-08 10:04] LABS: BILIRUBIN,TOTAL 0.4 mg/dL (0.2-1); CREATININE 0.5 mg/dL (0.55-1.3)
[2023-09-08 10:05] LABS: ALK PHOS 77 U/L (45-117); TOT PROT 5.6 g/dl (6.4-8.2)
[2023-09-08 10:08] LABS: CALCIUM 6.8 mg/dL (8.5-10.1)
[2023-09-08] MEDS: ARTIFICIAL TEARS (POLYVINYL ALCOHOL) OPTH DROPS OU SCH ×2 (11:38→22:26)
[2023-09-08] MEDS: BACLOFEN 10 MG TABLET (FP) PO SCH ×2 (11:38→22:23)
[2023-09-08] MEDS: FLUoxetine HCL 20 MG CAPSULE PO SCH (11:39)
[2023-09-08] MEDS: LACTOBACILLUS ACIDOPHILUS 1 TABLET PO SCH (11:39)
[2023-09-08] MEDS: SENNOSIDES 8.6MG TABLET (FP) PO SCH ×2 (11:39→22:24)
[2023-09-08] MEDS: DOXYCYCLINE HYCLATE 100 MG CAPSULE PO SCH ×2 (11:39→18:35)
[2023-09-08] MEDS: DOCUSATE SODIUM 100 MG CAPSULE (FP) PO SCH (11:39)
[2023-09-08] MEDS: LOSARTAN POTASSIUM 50 MG TABLET PO SCH (11:39)
[2023-09-08] MEDS: ASCORBIC ACID 500 MG TABLET (FP) PO SCH (11:39)
[2023-09-08] MEDS: BUDESONIDE/FORMETEROL FUMARATE 160/4.5 mcg INHALER IH SCH ×2 (11:41→22:26)
[2023-09-08] MEDS: ENOXAPARIN NA (PORCINE) 40 MG/0.4 ML DISP.SYRIN SQ SCH (11:41)
[2023-09-08 15:52] LABS: POTASSIUM 3.5 mmol/L (3.5-5.1)
[2023-09-08 15:54] LABS: BLOOD UREA NITROGEN 9.7 mg/dL (7-18); CALCIUM 7.2 mg/dL (8.5-10.1)
[2023-09-08] MEDS: CALCIUM 500MG/VIT-D 200 UNITS COMBO TABLET (FP) PO SCH (15:56)
[2023-09-08 15:57] LABS: CREATININE 0.7 mg/dL (0.55-1.3)
[2023-09-08] MEDS ORDERED: IRON SUCROSE INJECTION 200 MG in SODIUM CHLORIDE 90 ML IVPB ONE (16:18)
[2023-09-08] MEDS: SODIUM CHLORIDE 1,000 ML IV SCH (17:27)
[2023-09-08] MEDS: MELATONIN 1 MG TABLET PO SCH (22:23)
[2023-09-08] MEDS: traZODone HCL 50 MG TABLET (FP) PO SCH (22:24)
[2023-09-08] MEDS: ATORVASTATIN CA 10 MG TABLET (FP) PO SCH (22:28)
[2023-09-09] MEDS: PREGABALIN 100 MG CAPSULE PO SCH ×3 (06:47→21:52)
[2023-09-09] MEDS ORDERED: IRON SUCROSE INJECTION 200 MG in SODIUM CHLORIDE 90 ML IVPB ONE (09:00)
[2023-09-09] MEDS: ENOXAPARIN NA (PORCINE) 40 MG/0.4 ML DISP.SYRIN SQ SCH (09:33)
[2023-09-09 10:16] LABS: BASO % 0.7 % (0-2.0); EOS % 1.4 % (0-4.5); HEMATOCRIT 26.9 % (32.4-45.2); HEMOGLOBIN 8.9 GM/dL (10.7-15.3); LYMPH % 15.5 % (8-40); MCH 24.9 pg (25.7-33.7); MCHC 32.9 g/dl (32.0-36.0); MEAN CELL VOLUME 75.5 fl (80-96); MONO % 13.2 % (3.8-10.2); NEUT % 69.2 % (42.8-82.8); PLATELET COUNT 332 10^3/uL (134-434); RBC 3.57 M/mm3 (3.60-5.2); RDW 19.7 % (11.6-15.6); WHITE BLOOD COUNT 4.5 K/mm3 (4.0-10.0)
[2023-09-09] MEDS: BACLOFEN 10 MG TABLET (FP) PO SCH ×2 (10:25→21:58)
[2023-09-09] MEDS: DOXYCYCLINE HYCLATE 100 MG CAPSULE PO SCH ×2 (10:25→17:14)
[2023-09-09] MEDS: LACTOBACILLUS ACIDOPHILUS 1 TABLET PO SCH (10:25)
[2023-09-09] MEDS: CALCIUM 500MG/VIT-D 200 UNITS COMBO TABLET (FP) PO SCH (10:26)
[2023-09-09] MEDS: FLUoxetine HCL 20 MG CAPSULE PO SCH (10:26)
[2023-09-09] MEDS: ASCORBIC ACID 500 MG TABLET (FP) PO SCH (10:26)
[2023-09-09] MEDS: PANTOPRAZOLE 40 MG TABLET PO SCH (10:26)
[2023-09-09] MEDS: LOSARTAN POTASSIUM 50 MG TABLET PO SCH (10:27)
[2023-09-09] MEDS: BUDESONIDE/FORMETEROL FUMARATE 160/4.5 mcg INHALER IH SCH ×2 (10:28→21:31)
[2023-09-09] MEDS: ARTIFICIAL TEARS (POLYVINYL ALCOHOL) OPTH DROPS OU SCH ×2 (10:28→21:31)
[2023-09-09] MEDS: SENNOSIDES 8.6MG TABLET (FP) PO SCH ×2 (10:29→21:52)
[2023-09-09] MEDS: POLYETHYLENE GLYCOL (HEALTHYLAX) 3350 17 GM PACKET PO SCH (10:29)
[2023-09-09 10:56] LABS: POTASSIUM 3.9 mmol/L (3.5-5.1)
[2023-09-09 10:58] LABS: CALCIUM 7.7 mg/dL (8.5-10.1)
[2023-09-09 11:00] LABS: ALBUMIN 2.6 g/dl (3.4-5.0); BLOOD UREA NITROGEN 17.6 mg/dL (7-18)
[2023-09-09 11:02] LABS: CREATININE 0.7 mg/dL (0.55-1.3)
[2023-09-09 11:04] LABS: BILIRUBIN,TOTAL 0.2 mg/dL (0.2-1); TOT PROT 5.7 g/dl (6.4-8.2)
[2023-09-09] MEDS ORDERED: MECLIZINE HCL 12.5 MG TABLET PO PRN (12:03)
[2023-09-09] MEDS: CALCIUM CARBONATE 650 MG TABLET PO SCH (17:15)
[2023-09-09] MEDS: SODIUM CHLORIDE 1,000 ML IV SCH (17:15)
[2023-09-09] MEDS ORDERED: MELATONIN 1 MG TABLET PO PRN (21:50)
[2023-09-09] MEDS: ATORVASTATIN CA 10 MG TABLET (FP) PO SCH (21:52)
[2023-09-09] MEDS: traZODone HCL 50 MG TABLET (FP) PO SCH (21:58)
[2023-09-10] MEDS: PREGABALIN 100 MG CAPSULE PO SCH ×2 (05:10→14:32)
[2023-09-10 08:37] LABS: BASO % 0.8 % (0-2.0); EOS % 1.3 % (0-4.5); HEMATOCRIT 25.1 % (32.4-45.2); HEMOGLOBIN 8.3 GM/dL (10.7-15.3); LYMPH % 19.9 % (8-40); MCH 24.9 pg (25.7-33.7); MCHC 32.9 g/dl (32.0-36.0); MEAN CELL VOLUME 75.6 fl (80-96); MEAN PLT VOLUME 7.5 fl (7.5-11.1); MONO % 14.3 % (3.8-10.2); NEUT % 63.7 % (42.8-82.8); PLATELET COUNT 310 10^3/uL (134-434); RBC 3.32 M/mm3 (3.60-5.2); RDW 19.5 % (11.6-15.6); WHITE BLOOD COUNT 4.5 K/mm3 (4.0-10.0)
[2023-09-10] MEDS: SENNOSIDES 8.6MG TABLET (FP) PO SCH (09:00)
[2023-09-10] MEDS: ENOXAPARIN NA (PORCINE) 40 MG/0.4 ML DISP.SYRIN SQ SCH (09:01)
[2023-09-10 09:02] LABS: POTASSIUM 4.5 mmol/L (3.5-5.1)
[2023-09-10 09:22] LABS: CALCIUM 8.2 mg/dL (8.5-10.1)
[2023-09-10 09:23] LABS: ALBUMIN 2.4 g/dl (3.4-5.0); BLOOD UREA NITROGEN 14.5 mg/dL (7-18); MAGNESIUM 1.6 mg/dL (1.8-2.4)
[2023-09-10 09:26] LABS: CREATININE 0.5 mg/dL (0.55-1.3)
[2023-09-10 09:28] LABS: BILIRUBIN,TOTAL 0.9 mg/dL (0.2-1); TOT PROT 5.3 g/dl (6.4-8.2)
[2023-09-10] MEDS: BACLOFEN 10 MG TABLET (FP) PO SCH (09:28)
[2023-09-10] MEDS: DOXYCYCLINE HYCLATE 100 MG CAPSULE PO SCH (09:28)
[2023-09-10] MEDS: FLUoxetine HCL 20 MG CAPSULE PO SCH (09:29)
[2023-09-10] MEDS: LOSARTAN POTASSIUM 50 MG TABLET PO SCH (09:33)
[2023-09-10] MEDS: PANTOPRAZOLE 40 MG TABLET PO SCH (09:33)
[2023-09-10] MEDS: LACTOBACILLUS ACIDOPHILUS 1 TABLET PO SCH (09:33)
[2023-09-10] MEDS: POLYETHYLENE GLYCOL (HEALTHYLAX) 3350 17 GM PACKET PO SCH (09:42)
[2023-09-10] MEDS: ARTIFICIAL TEARS (POLYVINYL ALCOHOL) OPTH DROPS OU SCH (09:50)
[2023-09-10] MEDS: BUDESONIDE/FORMETEROL FUMARATE 160/4.5 mcg INHALER IH SCH (10:05)
[2023-09-10] MEDS: ASCORBIC ACID 500 MG TABLET (FP) PO SCH (10:05)
[2023-09-10 10:21] VITALS: PULSE 88
[2023-09-10] MEDS: CALCIUM CARBONATE 650 MG TABLET PO SCH (10:25)
[2023-09-10] MEDS ORDERED: MAGNESIUM OXIDE 400 MG TABLET (FP) PO ONE (11:15)
[2023-09-10] MEDS ORDERED: SODIUM CHLORIDE 1 GM TABLET PO SCH (11:45)
[2023-09-10 14:03] VITALS: BP 113/79; RESP 17; TEMP 99.9
[2023-09-13] MEDS ORDERED: ERGOCALCIFEROL (VIT D2) 50,000 UNIT (1.25 MG) CAPSULE PO SCH (10:00)
== END 2023-09-10 15:38 | disposition home health service (06) | DRG 641 ==
LOC: JER 10:57 → OBSVTOIN 13:24 → JERBED 13:24 → J8W 09-08 02:26
PROVIDERS: ADMIT Internal Medicine; ATTEND Nurse Practitioner Acute Care
DX: E87.1 Hypo-osmolality and hyponatremia (principal); L97.909 Non-pressure chronic ulcer of unspecified part of unspecified lower leg with unspecified severity; D50.9 Iron deficiency anemia, unspecified; E86.0 Dehydration; I10 Essential (primary) hypertension; E83.42 Hypomagnesemia; J45.909 Unspecified asthma, uncomplicated; E83.39 Other disorders of phosphorus metabolism
CPT/HCPCS: 0241U-QW; 36415; 71045-TC-FY; 80048; 80053; 81003; 82436; 82570; 82728; 83540; 83550; 83690; 83735; 83930; 83935; 84100; 84133; 84300; 84484; 85025; 85045; 86140; 87086; 87635; 93005; 93010; 93971-TC; 97116-GP; 97161-GP; 99285-25; J0475; J1756

== ENCOUNTER 2023-09-13 22:55 | Inpatient (IN) | payer OTHER, MEDICARE ==
[2023-09-14 00:57] LABS: BASO % 0.4 % (0-2.0); EOS % 0.4 % (0-4.5); HEMATOCRIT 27.8 % (32.4-45.2); HEMOGLOBIN 8.9 GM/dL (10.7-15.3); LYMPH % 9.8 % (8-40); MCH 24.7 pg (25.7-33.7); MCHC 31.9 g/dl (32.0-36.0); MEAN CELL VOLUME 77.3 fl (80-96); MEAN PLT VOLUME 7.6 fl (7.5-11.1); MONO % 7.7 % (3.8-10.2); NEUT % 81.7 % (42.8-82.8); PLATELET COUNT 300 10^3/uL (134-434); RDW 19.4 % (11.6-15.6)
[2023-09-14 01:03] LABS: INR 1.02 (0.83-1.09); PROTHROMBIN TIME (PATIENT) 11.8 SEC (9.7-13.0)
[2023-09-14 01:06] LABS: ACTIVATED PTT 32.1 SECONDS (25.2-36.5)
[2023-09-14] MEDS ORDERED: traZODone HCL 50 MG TABLET (FP) PO ONE (01:23)
[2023-09-14] MEDS ORDERED: MELATONIN 5 MG TABLETS PO ONE (01:24)
[2023-09-14] MEDS ORDERED: MELATONIN 5 MG TABLETS ONE (01:30)
[2023-09-14] MEDS ORDERED: traZODone HCL 50 MG TABLET (FP) ONE ×2 (01:30→20:51)
[2023-09-14 01:36] LABS: POTASSIUM 4.6 mmol/L (3.5-5.1)
[2023-09-14 01:38] LABS: BLOOD UREA NITROGEN 11.8 mg/dL (7-18)
[2023-09-14 01:41] LABS: CREATININE 0.5 mg/dL (0.55-1.3)
[2023-09-14 01:43] LABS: BILIRUBIN,TOTAL 0.4 mg/dL (0.2-1); TOT PROT 6.4 g/dl (6.4-8.2)
[2023-09-14 02:04] LABS: PH,URINE 7.5 (5.0-8.0); URINE APPEARANCE CLEAR; URINE BILIRUBIN NEGATIVE (NEGATIVE); URINE COLOR YELLOW; URINE GLUCOSE (UA) NEGATIVE (NEGATIVE); URINE KETONE 1+ (NEGATIVE); URINE LEUK ESTERASE NEGATIVE (NEGATIVE); URINE NITRITE NEGATIVE (NEGATIVE); URINE PROTEIN NEGATIVE (NEGATIVE); URINE UROBILINOGEN 0.2 mg/dL (0.2-1.0)
[2023-09-14] MEDS ORDERED: ALBUTEROL SO4 2.5/IPRATROPIUM 0.5 INH SOL 3 ML VIAL.NEB. NEB PRN (02:54)
[2023-09-14] MEDS: ACETAMINOPHEN 325 MG TABLET (FP) PO PRN ×3 (02:57→21:09)
[2023-09-14] MEDS ORDERED: PANTOPRAZOLE SODIUM 40 MG/100 ML BAG IVPB ONE (03:03)
[2023-09-14] MEDS: SODIUM CHLORIDE 1,000 ML IV SCH (03:18)
[2023-09-14] MEDS: PANTOPRAZOLE SODIUM 40 MG VIAL IVPUSH SCH ×2 (03:18→11:17)
[2023-09-14] MEDS ORDERED: PREGABALIN 100 MG CAPSULE ONE ×3 (05:51→20:51)
[2023-09-14] MEDS ORDERED: HEPARIN NA (PORCINE) 5,000 UNITS/ML 1ML VIAL ONE ×2 (05:51→20:52)
[2023-09-14] MEDS: PREGABALIN 100 MG CAPSULE PO SCH ×3 (05:58→21:10)
[2023-09-14] MEDS: HEPARIN NA (PORCINE) 5,000 UNITS/ML 1ML VIAL SQ SCH ×3 (05:58→21:10)
[2023-09-14] MEDS: LACTOBACILLUS ACIDOPHILUS 1 TABLET PO SCH (11:17)
[2023-09-14] MEDS: FLUoxetine HCL 20 MG CAPSULE PO SCH (11:17)
[2023-09-14] MEDS: ASCORBIC ACID 500 MG TABLET (FP) PO SCH (11:17)
[2023-09-14] MEDS: BACLOFEN 10 MG TABLET (FP) PO SCH ×2 (11:17→21:10)
[2023-09-14] MEDS: DOXYCYCLINE HYCLATE 100 MG CAPSULE PO SCH ×2 (11:17→17:57)
[2023-09-14] MEDS: SODIUM CHLORIDE 1 GM TABLET PO SCH (11:17)
[2023-09-14] MEDS ORDERED: ATORVASTATIN CA 20 MG TABLET (FP) ONE (20:50)
[2023-09-14] MEDS ORDERED: amLODIPine BESYLATE 5 MG TABLET (FP) ONE (20:50)
[2023-09-14] MEDS ORDERED: BACLOFEN 10 MG TABLET (FP) ONE (20:51)
[2023-09-14] MEDS ORDERED: ACETAMINOPHEN 325 MG TABLET (FP) ONE (20:51)
[2023-09-14] MEDS: traZODone HCL 50 MG TABLET (FP) PO SCH (21:10)
[2023-09-14] MEDS: amLODIPine BESYLATE 5 MG TABLET (FP) PO SCH (21:10)
[2023-09-14] MEDS: ATORVASTATIN CA 20 MG TABLET (FP) PO SCH (21:10)
[2023-09-15] MEDS ORDERED: PREGABALIN 100 MG CAPSULE ONE ×3 (05:29→23:54)
[2023-09-15] MEDS ORDERED: HEPARIN NA (PORCINE) 5,000 UNITS/ML 1ML VIAL ONE ×2 (05:30→23:56)
[2023-09-15] MEDS: HEPARIN NA (PORCINE) 5,000 UNITS/ML 1ML VIAL SQ SCH ×2 (05:33→14:21)
[2023-09-15] MEDS: PREGABALIN 100 MG CAPSULE PO SCH ×2 (05:33→14:21)
[2023-09-15] MEDS: SODIUM CHLORIDE 1,000 ML IV SCH (05:33)
[2023-09-15 07:08] LABS: BASO % 0.9 % (0-2.0); EOS % 4.1 % (0-4.5); HEMOGLOBIN 8.3 GM/dL (10.7-15.3); LYMPH % 27.7 % (8-40); MCH 24.3 pg (25.7-33.7); MCHC 30.8 g/dl (32.0-36.0); MEAN CELL VOLUME 78.9 fl (80-96); MONO % 15.5 % (3.8-10.2); NEUT % 51.8 % (42.8-82.8); PLATELET COUNT 236 10^3/uL (134-434); RBC 3.42 M/mm3 (3.60-5.2); RDW 19.8 % (11.6-15.6)
[2023-09-15 07:22] LABS: POTASSIUM 4.1 mmol/L (3.5-5.1)
[2023-09-15 07:25] LABS: CALCIUM 7.7 mg/dL (8.5-10.1)
[2023-09-15 07:29] LABS: CREATININE 0.5 mg/dL (0.55-1.3)
[2023-09-15] MEDS ORDERED: IRON SUCROSE INJECTION 300 MG in SODIUM CHLORIDE 235 ML IVPB ONE (10:15)
[2023-09-15] MEDS: DOXYCYCLINE HYCLATE 100 MG CAPSULE PO SCH ×2 (10:27→17:46)
[2023-09-15] MEDS: LACTOBACILLUS ACIDOPHILUS 1 TABLET PO SCH (10:27)
[2023-09-15] MEDS: FLUoxetine HCL 20 MG CAPSULE PO SCH (10:27)
[2023-09-15] MEDS: amLODIPine BESYLATE 5 MG TABLET (FP) PO SCH (10:27)
[2023-09-15] MEDS: ASCORBIC ACID 500 MG TABLET (FP) PO SCH (10:27)
[2023-09-15] MEDS: SODIUM CHLORIDE 1 GM TABLET PO SCH (10:27)
[2023-09-15] MEDS: PANTOPRAZOLE SODIUM 40 MG VIAL IVPUSH SCH (10:27)
[2023-09-15] MEDS: BACLOFEN 10 MG TABLET (FP) PO SCH (10:27)
[2023-09-15 11:07] LABS: BASO % 0.8 % (0-2.0); HEMATOCRIT 27.6 % (32.4-45.2); HEMOGLOBIN 8.8 GM/dL (10.7-15.3); LYMPH % 25.8 % (8-40); MCH 24.7 pg (25.7-33.7); MCHC 31.9 g/dl (32.0-36.0); MEAN CELL VOLUME 77.5 fl (80-96); MEAN PLT VOLUME 7.3 fl (7.5-11.1); MONO % 12.9 % (3.8-10.2); NEUT % 56.5 % (42.8-82.8); PLATELET COUNT 237 10^3/uL (134-434); RBC 3.57 M/mm3 (3.60-5.2); RDW 20.2 % (11.6-15.6)
[2023-09-15 19:10] LABS: MAGNESIUM 2.1 mg/dL (1.8-2.4)
[2023-09-15] MEDS ORDERED: ATORVASTATIN CA 20 MG TABLET (FP) ONE (23:54)
[2023-09-15] MEDS ORDERED: BACLOFEN 10 MG TABLET (FP) ONE (23:55)
[2023-09-15] MEDS ORDERED: traZODone HCL 50 MG TABLET (FP) ONE (23:55)
[2023-09-16] MEDS: traZODone HCL 50 MG TABLET (FP) PO SCH (00:03)
[2023-09-16] MEDS: HEPARIN NA (PORCINE) 5,000 UNITS/ML 1ML VIAL SQ SCH ×2 (00:03→06:24)
[2023-09-16] MEDS: BACLOFEN 10 MG TABLET (FP) PO SCH ×2 (00:04→09:59)
[2023-09-16] MEDS: PREGABALIN 100 MG CAPSULE PO SCH ×2 (00:04→06:24)
[2023-09-16] MEDS: ATORVASTATIN CA 20 MG TABLET (FP) PO SCH (00:04)
[2023-09-16 02:55] VITALS: BMI 22.6
[2023-09-16] MEDS: SODIUM CHLORIDE 1,000 ML IV SCH (05:05)
[2023-09-16] MEDS: DOXYCYCLINE HYCLATE 100 MG CAPSULE PO SCH (09:59)
[2023-09-16] MEDS: LACTOBACILLUS ACIDOPHILUS 1 TABLET PO SCH (09:59)
[2023-09-16] MEDS: ASCORBIC ACID 500 MG TABLET (FP) PO SCH (09:59)
[2023-09-16] MEDS: amLODIPine BESYLATE 5 MG TABLET (FP) PO SCH (09:59)
[2023-09-16 10:00] LABS: BASO % 0.9 % (0-2.0); EOS % 3.2 % (0-4.5); HEMOGLOBIN 9.3 GM/dL (10.7-15.3); LYMPH % 22.5 % (8-40); MCH 24.8 pg (25.7-33.7); MCHC 32.1 g/dl (32.0-36.0); MEAN CELL VOLUME 77.3 fl (80-96); MEAN PLT VOLUME 7.6 fl (7.5-11.1); MONO % 8.8 % (3.8-10.2); NEUT % 64.6 % (42.8-82.8); PLATELET COUNT 275 10^3/uL (134-434); RBC 3.75 M/mm3 (3.60-5.2); RDW 20.8 % (11.6-15.6); WHITE BLOOD COUNT 4.3 K/mm3 (4.0-10.0)
[2023-09-16] MEDS ORDERED: PANTOPRAZOLE 40 MG TABLET PO SCH (10:00)
[2023-09-16 10:38] LABS: POTASSIUM 3.8 mmol/L (3.5-5.1)
[2023-09-16 11:09] LABS: ANISOCYTOSIS 2+
[2023-09-16] MEDS: FLUoxetine HCL 20 MG CAPSULE PO SCH (11:23)
[2023-09-16] MEDS: SODIUM CHLORIDE 1 GM TABLET PO SCH (11:23)
[2023-09-16 11:26] LABS: CALCIUM 7.8 mg/dL (8.5-10.1)
[2023-09-16 11:27] LABS: BLOOD UREA NITROGEN 7.4 mg/dL (7-18)
[2023-09-16 11:30] LABS: CREATININE 0.5 mg/dL (0.55-1.3)
[2023-09-16 13:12] VITALS: RESP 18
[2023-09-16 14:16] VITALS: BP 108/53; PULSE 72; TEMP 97.7
== END 2023-09-16 15:27 | disposition home or self-care (01) | DRG 641 ==
LOC: JER 22:55 → JERBED 09-14 02:06 → J7W 09-16 01:27
PROVIDERS: ADMIT Internal Medicine; ATTEND Internal Medicine
DX: E86.0 Dehydration (principal); E87.1 Hypo-osmolality and hyponatremia; R19.7 Diarrhea, unspecified; I10 Essential (primary) hypertension; J45.909 Unspecified asthma, uncomplicated; H35.30 Unspecified macular degeneration; A49.02 Methicillin resistant Staphylococcus aureus infection, unspecified site; R42 Dizziness and giddiness; D50.9 Iron deficiency anemia, unspecified
CPT/HCPCS: 0241U-QW; 36415; 80048; 80053; 81003; 82550; 82728; 83036; 83540; 83550; 83735; 84484; 85025; 85610; 85730; 87086; 93005; 93010; 93306-TC; 93970-TC; 99285-25; J0475; J1644; J1756

== ENCOUNTER 2023-10-13 13:10 | Inpatient (IN) | payer OTHER, MEDICARE ==
[2023-10-13 13:54] VITALS: BMI 26.2
[2023-10-13] MEDS ORDERED: ACETAMINOPHEN 325 MG TABLET (FP) PO PRN ×2 (14:32→16:48)
[2023-10-13] MEDS ORDERED: DOCUSATE SODIUM 100 MG CAPSULE (FP) PO PRN (14:35)
[2023-10-13] MEDS ORDERED: ALBUTEROL SO4 2.5/IPRATROPIUM 0.5 INH SOL 3 ML VIAL.NEB. NEB PRN (14:36)
[2023-10-13] MEDS ORDERED: HEPARIN NA (PORCINE) 5,000 UNITS/ML 1ML VIAL SQ SCH (14:45)
[2023-10-13] MEDS ORDERED: MECLIZINE HCL 12.5 MG TABLET PO PRN ×2 (14:53→15:25)
[2023-10-13 14:55] LABS: BASO % 0.8 % (0-2.0); EOS % 1.8 % (0-4.5); HEMATOCRIT 27.5 % (32.4-45.2); HEMOGLOBIN 8.7 GM/dL (10.7-15.3); LYMPH % 19.9 % (8-40); MCH 25.5 pg (25.7-33.7); MCHC 31.7 g/dl (32.0-36.0); MEAN CELL VOLUME 80.7 fl (80-96); MEAN PLT VOLUME 7.9 fl (7.5-11.1); MONO % 12.6 % (3.8-10.2); NEUT % 64.9 % (42.8-82.8); PLATELET COUNT 305 10^3/uL (134-434); RBC 3.41 M/mm3 (3.60-5.2); RDW 21.6 % (11.6-15.6); WHITE BLOOD COUNT 5.4 K/mm3 (4.0-10.0)
[2023-10-13 15:01] LABS: INR 1.04 (0.83-1.09); PROTHROMBIN TIME (PATIENT) 12.1 SEC (9.7-13.0)
[2023-10-13 15:04] LABS: ACTIVATED PTT 34.1 SECONDS (25.2-36.5)
[2023-10-13 15:16] LABS: POTASSIUM 4.5 mmol/L (3.5-5.1)
[2023-10-13 15:18] LABS: CALCIUM 7.9 mg/dL (8.5-10.1)
[2023-10-13] MEDS ORDERED: PANTOPRAZOLE 40 MG TABLET PO ONE (15:18)
[2023-10-13 15:19] LABS: ALBUMIN 2.8 g/dl (3.4-5.0)
[2023-10-13] MEDS ORDERED: PREGABALIN 100 MG CAPSULE ONE (15:19)
[2023-10-13 15:22] LABS: CREATININE 0.8 mg/dL (0.55-1.3)
[2023-10-13 15:23] LABS: BILIRUBIN,TOTAL 0.3 mg/dL (0.2-1); TOT PROT 6.3 g/dl (6.4-8.2)
[2023-10-13] MEDS: PREGABALIN 100 MG CAPSULE PO SCH ×2 (15:24→21:38)
[2023-10-13] MEDS: PANTOPRAZOLE 40 MG TABLET PO SCH (15:24)
[2023-10-13 15:33] LABS: ANISOCYTOSIS 1+; MACROCYTOSIS 0
[2023-10-13] MEDS ORDERED: ACETAMINOPHEN 325 MG TABLET (FP) ONE (16:36)
[2023-10-13 16:46] LABS: MAGNESIUM 2.2 mg/dL (1.8-2.4)
[2023-10-13] MEDS ORDERED: oxyCODONE HCL 5 MG TABLET PO PRN (16:46)
[2023-10-13] MEDS ORDERED: D5-1/2NS+10 MEQ KCL - 10 MEQ/1,000 ML INFUS.BAG IV SCH (18:00)
[2023-10-13] MEDS: DOXYCYCLINE HYCLATE 100 MG CAPSULE PO SCH (18:25)
[2023-10-13] MEDS ORDERED: IRON SUCROSE INJECTION 300 MG in SODIUM CHLORIDE 235 ML IVPB ONE (19:31)
[2023-10-13] MEDS: BACLOFEN 10 MG TABLET (FP) PO SCH (21:38)
[2023-10-13] MEDS ORDERED: MELATONIN 1 MG TABLET PO SCH (22:00)
[2023-10-13] MEDS ORDERED: ATORVASTATIN CA 20 MG TABLET (FP) PO SCH (22:00)
[2023-10-13] MEDS ORDERED: traZODone HCL 50 MG TABLET (FP) PO SCH (22:00)
[2023-10-13] MEDS: ARTIFICIAL TEARS OPHTHALMIC DROPS OU SCH (22:59)
[2023-10-14] MEDS: PREGABALIN 100 MG CAPSULE PO SCH ×3 (05:07→21:40)
[2023-10-14] MEDS ORDERED: IRON SUCROSE INJECTION 300 MG in SODIUM CHLORIDE 235 ML IVPB ONE (06:45)
[2023-10-14] MEDS: BACLOFEN 10 MG TABLET (FP) PO SCH ×2 (09:22→21:39)
[2023-10-14] MEDS: PANTOPRAZOLE 40 MG TABLET PO SCH (09:23)
[2023-10-14] MEDS: DOXYCYCLINE HYCLATE 100 MG CAPSULE PO SCH ×2 (09:24→18:22)
[2023-10-14] MEDS ORDERED: LACTOBACILLUS ACIDOPHILUS 1 TABLET PO SCH (10:00)
[2023-10-14] MEDS ORDERED: FLUoxetine HCL 20 MG CAPSULE PO SCH (10:00)
[2023-10-14] MEDS ORDERED: ASCORBIC ACID 500 MG TABLET (FP) PO SCH (10:00)
[2023-10-14] MEDS ORDERED: SODIUM CHLORIDE 1 GM TABLET PO SCH (10:00)
[2023-10-14] MEDS ORDERED: LOSARTAN POTASSIUM 50 MG TABLET PO SCH (10:00)
[2023-10-14] MEDS ORDERED: CALCIUM 500MG/VIT-D 200 UNITS COMBO TABLET (FP) PO SCH (10:00)
[2023-10-14 10:35] LABS: EOS % 3.2 % (0-4.5); HEMATOCRIT 27.1 % (32.4-45.2); HEMOGLOBIN 8.7 GM/dL (10.7-15.3); MCHC 32.1 g/dl (32.0-36.0); MEAN CELL VOLUME 80.9 fl (80-96); MEAN PLT VOLUME 7.9 fl (7.5-11.1); MONO % 11.9 % (3.8-10.2); NEUT % 62.9 % (42.8-82.8); PLATELET COUNT 292 10^3/uL (134-434); RBC 3.34 M/mm3 (3.60-5.2); RDW 21.6 % (11.6-15.6); WHITE BLOOD COUNT 3.9 K/mm3 (4.0-10.0)
[2023-10-14 10:53] LABS: POTASSIUM 4.7 mmol/L (3.5-5.1)
[2023-10-14 11:00] LABS: CALCIUM 8.1 mg/dL (8.5-10.1)
[2023-10-14] MEDS: ARTIFICIAL TEARS OPHTHALMIC DROPS OU SCH ×2 (11:00→21:41)
[2023-10-14 11:01] LABS: BLOOD UREA NITROGEN 16.4 mg/dL (7-18)
[2023-10-14 11:04] LABS: CREATININE 0.6 mg/dL (0.55-1.3)
[2023-10-14] MEDS ORDERED: morphine SULFATE 4 MG/ML VIAL IVPUSH PRN (12:29)
[2023-10-14] MEDS ORDERED: oxyCODONE HCL 5 MG TABLET PO PRN (12:30)
[2023-10-14] MEDS ORDERED: PROPOFOL 20 ML ONE (13:57)
[2023-10-14] MEDS ORDERED: FENTANYL CITRATE/PF 50 MCG/ML VIAL ONE ×3 (13:57→16:44)
[2023-10-14] MEDS ORDERED: LIDOCAINE 1%/EPI 1:100000 (20 ML MULTI DOSE VIAL) ONE (14:08)
[2023-10-14] MEDS ORDERED: LACTATED RINGERS SOLUTION 1,000 ML IV SCH (15:15)
[2023-10-14] MEDS ORDERED: GENTAMICIN SO4 80 MG/2 ML VIAL ONE (15:24)
[2023-10-14] MEDS ORDERED: ACETAMINOPHEN INJECTION 100 ML IVPB ONE (15:25)
[2023-10-14] MEDS ORDERED: GENTAMICIN SO4 80 MG/2 ML VIAL IVPB ONE ×2 (15:32→15:52)
[2023-10-14] MEDS ORDERED: BUPIVACAINE HCL/PF 0.25% (2.5MG/ML) 10 ML VIAL ONE (15:45)
[2023-10-14] MEDS ORDERED: BUPIVACAINE HCL/PF 0.25% (2.5MG/ML) 10 ML VIAL IJ ONE ×2 (15:48)
[2023-10-14] MEDS ORDERED: LIDOCAINE 1%/EPI 1:100000 (20 ML MULTI DOSE VIAL) IJ ONE ×2 (15:51)
[2023-10-14] MEDS ORDERED: D5-1/2NS+10 MEQ KCL - 10 MEQ/1,000 ML INFUS.BAG IV SCH (17:09)
[2023-10-14] MEDS ORDERED: ACETAMINOPHEN 325 MG TABLET (FP) PO PRN (17:09)
[2023-10-14] MEDS ORDERED: ALBUTEROL SO4 2.5/IPRATROPIUM 0.5 INH SOL 3 ML VIAL.NEB. NEB PRN (17:09)
[2023-10-14] MEDS ORDERED: MECLIZINE HCL 12.5 MG TABLET PO PRN (17:09)
[2023-10-14] MEDS ORDERED: DOCUSATE SODIUM 100 MG CAPSULE (FP) PO PRN (17:09)
[2023-10-14] MEDS: MELATONIN 1 MG TABLET PO SCH (21:39)
[2023-10-14] MEDS: traZODone HCL 50 MG TABLET (FP) PO SCH (21:40)
[2023-10-14] MEDS: ATORVASTATIN CA 20 MG TABLET (FP) PO SCH (21:40)
[2023-10-14] MEDS: morphine SULFATE 4 MG/ML VIAL IVPUSH PRN (22:28)
[2023-10-15] MEDS: morphine SULFATE 4 MG/ML VIAL IVPUSH PRN (02:56)
[2023-10-15] MEDS: PREGABALIN 100 MG CAPSULE PO SCH ×3 (05:38→22:17)
[2023-10-15 08:40] LABS: BASO % 0.9 % (0-2.0); EOS % 4.7 % (0-4.5); HEMATOCRIT 23.9 % (32.4-45.2); HEMOGLOBIN 7.8 GM/dL (10.7-15.3); LYMPH % 18.3 % (8-40); MCH 26.9 pg (25.7-33.7); MCHC 32.5 g/dl (32.0-36.0); MEAN CELL VOLUME 82.6 fl (80-96); MONO % 12.4 % (3.8-10.2); NEUT % 63.7 % (42.8-82.8); PLATELET COUNT 253 10^3/uL (134-434); RDW 21.4 % (11.6-15.6); WHITE BLOOD COUNT 4.1 K/mm3 (4.0-10.0)
[2023-10-15 08:50] LABS: POTASSIUM 4.8 mmol/L (3.5-5.1)
[2023-10-15 08:53] LABS: CALCIUM 7.8 mg/dL (8.5-10.1)
[2023-10-15 08:54] LABS: BLOOD UREA NITROGEN 11.6 mg/dL (7-18)
[2023-10-15 08:57] LABS: CREATININE 0.5 mg/dL (0.55-1.3)
[2023-10-15] MEDS: DOXYCYCLINE HYCLATE 100 MG CAPSULE PO SCH ×2 (10:24→18:23)
[2023-10-15] MEDS: BACLOFEN 10 MG TABLET (FP) PO SCH ×2 (10:24→22:17)
[2023-10-15] MEDS: FLUoxetine HCL 20 MG CAPSULE PO SCH (10:27)
[2023-10-15] MEDS: LACTOBACILLUS ACIDOPHILUS 1 TABLET PO SCH (10:29)
[2023-10-15] MEDS: CALCIUM 500MG/VIT-D 200 UNITS COMBO TABLET (FP) PO SCH (10:29)
[2023-10-15] MEDS: LOSARTAN POTASSIUM 50 MG TABLET PO SCH (10:29)
[2023-10-15] MEDS: SODIUM CHLORIDE 1 GM TABLET PO SCH (10:30)
[2023-10-15] MEDS: ASCORBIC ACID 500 MG TABLET (FP) PO SCH (10:30)
[2023-10-15] MEDS: PANTOPRAZOLE 40 MG TABLET PO SCH (10:30)
[2023-10-15] MEDS: ARTIFICIAL TEARS OPHTHALMIC DROPS OU SCH ×2 (11:28→22:19)
[2023-10-15] MEDS ORDERED: IRON SUCROSE INJECTION 300 MG in SODIUM CHLORIDE 235 ML IVPB ONE (12:00)
[2023-10-15] MEDS ORDERED: diphenhydrAMINE HCL 25 MG CAPSULE (FP) PO PRN (14:22)
[2023-10-15] MEDS ORDERED: diphenhydrAMINE HCL 25 MG CAPSULE (FP) PO ONE (14:30)
[2023-10-15] MEDS: oxyCODONE HCL 5 MG TABLET PO PRN (15:01)
[2023-10-15] MEDS: traZODone HCL 50 MG TABLET (FP) PO SCH (22:17)
[2023-10-15] MEDS: MELATONIN 1 MG TABLET PO SCH (22:17)
[2023-10-15] MEDS: ATORVASTATIN CA 20 MG TABLET (FP) PO SCH (22:17)
[2023-10-15 23:35] VITALS: RESP 20
[2023-10-16] MEDS: PREGABALIN 100 MG CAPSULE PO SCH ×2 (05:37→14:46)
[2023-10-16 09:19] LABS: BASO % 0.5 % (0-2.0); EOS % 3.9 % (0-4.5); HEMATOCRIT 27.4 % (32.4-45.2); HEMOGLOBIN 8.7 GM/dL (10.7-15.3); LYMPH % 17.8 % (8-40); MCH 26.1 pg (25.7-33.7); MCHC 31.8 g/dl (32.0-36.0); MEAN CELL VOLUME 82.1 fl (80-96); MEAN PLT VOLUME 7.5 fl (7.5-11.1); MONO % 15.8 % (3.8-10.2); PLATELET COUNT 272 10^3/uL (134-434); RBC 3.34 M/mm3 (3.60-5.2); RDW 20.6 % (11.6-15.6)
[2023-10-16] MEDS: LOSARTAN POTASSIUM 50 MG TABLET PO SCH (10:36)
[2023-10-16] MEDS: oxyCODONE HCL 5 MG TABLET PO PRN (10:37)
[2023-10-16] MEDS: CALCIUM 500MG/VIT-D 200 UNITS COMBO TABLET (FP) PO SCH (10:38)
[2023-10-16] MEDS: DOXYCYCLINE HYCLATE 100 MG CAPSULE PO SCH (10:39)
[2023-10-16] MEDS: ASCORBIC ACID 500 MG TABLET (FP) PO SCH (10:39)
[2023-10-16] MEDS: FLUoxetine HCL 20 MG CAPSULE PO SCH (10:39)
[2023-10-16] MEDS: PANTOPRAZOLE 40 MG TABLET PO SCH (10:39)
[2023-10-16] MEDS: BACLOFEN 10 MG TABLET (FP) PO SCH (10:39)
[2023-10-16] MEDS: SODIUM CHLORIDE 1 GM TABLET PO SCH (10:40)
[2023-10-16] MEDS: ARTIFICIAL TEARS OPHTHALMIC DROPS OU SCH (10:42)
[2023-10-16] MEDS: LACTOBACILLUS ACIDOPHILUS 1 TABLET PO SCH (10:42)
[2023-10-16 15:18] VITALS: BP 98/56; PULSE 79; TEMP 98.5
== END 2023-10-16 16:25 | disposition home or self-care (01) | DRG 501 ==
LOC: JER 13:10 → JERBED 14:26 → J8W 17:11
PROVIDERS: ADMIT Internal Medicine; ATTEND Internal Medicine
PROC: 0KBQ0ZZ Excision of Right Upper Leg Muscle, Open Approach (ICD-10-PCS; principal; 2023-10-14 17:30)
DX: T84.51XA Infection and inflammatory reaction due to internal right hip prosthesis, initial encounter (principal); L97.118 Non-pressure chronic ulcer of right thigh with other specified severity; E78.00 Pure hypercholesterolemia, unspecified; I10 Essential (primary) hypertension; H35.30 Unspecified macular degeneration; J45.909 Unspecified asthma, uncomplicated; K44.9 Diaphragmatic hernia without obstruction or gangrene; K59.00 Constipation, unspecified; D50.9 Iron deficiency anemia, unspecified; E77.8 Other disorders of glycoprotein metabolism; E88.09 Other disorders of plasma-protein metabolism, not elsewhere classified; D72.821 Monocytosis (symptomatic); M79.7 Fibromyalgia; F41.8 Other specified anxiety disorders; G47.00 Insomnia, unspecified; R26.81 Unsteadiness on feet; Z88.1 Allergy status to other antibiotic agents; Y83.8 Other surgical procedures as the cause of abnormal reaction of the patient, or of later complication, without mention of misadventure at the time of the procedure; Z96.641 Presence of right artificial hip joint
CPT/HCPCS: 11043; 17250; 36415; 73502-TC-RT-FY; 80048; 80053; 82728; 83540; 83550; 83735; 85025; 85610; 85730; 86850; 86870; 86880; 86900; 86901; 86902; 88305-TC; 93005; 93010; 94760; 99285-25; J0131; J0475; J1756

== ENCOUNTER 2024-01-05 16:14 | Inpatient (IN) | payer OTHER, MEDICARE ==
[2024-01-05] MEDS ORDERED: METOCLOPRAMIDE HCL INJECTION 10 MG/2 ML VIAL ONE (20:06)
[2024-01-05] MEDS: SODIUM CHLORIDE 0.9% 500 ML INFUS.BAG IV ONE (20:10)
[2024-01-05] MEDS: METOCLOPRAMIDE HCL INJECTION 10 MG/2 ML VIAL IVPUSH ONE (20:10)
[2024-01-05 20:15] LABS: BASO % 0.3 % (0-2.0); HEMATOCRIT 17.4 % (32.4-45.2); LYMPH % 14.8 % (8-40); MCHC 34.1 g/dl (32.0-36.0); MEAN CELL VOLUME 82.1 fl (80-96); MEAN PLT VOLUME 7.3 fl (7.5-11.1); MONO % 5.9 % (3.8-10.2); PLATELET COUNT 250 10^3/uL (134-434); RBC 2.12 M/mm3 (3.60-5.2); RDW 16.6 % (11.6-15.6); WHITE BLOOD COUNT 6.9 K/mm3 (4.0-10.0)
[2024-01-05 20:29] LABS: POTASSIUM 4.6 mmol/L (3.5-5.1)
[2024-01-05] MEDS ORDERED: morphine SULFATE 4 MG/ML VIAL ONE (20:29)
[2024-01-05 20:31] LABS: HEMOGLOBIN 5.9 GM/dL (10.7-15.3)
[2024-01-05 20:32] LABS: ALBUMIN 2.1 g/dl (3.4-5.0); BLOOD UREA NITROGEN 45.7 mg/dL (7-18); CALCIUM 7.6 mg/dL (8.5-10.1); MAGNESIUM 1.5 mg/dL (1.8-2.4)
[2024-01-05 20:35] LABS: CREATININE 0.7 mg/dL (0.55-1.3)
[2024-01-05] MEDS: morphine CARPU-JECT 4 MG/1 ML DISP.SYRIN IVPUSH ONE (20:35)
[2024-01-05 20:37] LABS: BILIRUBIN,TOTAL 0.2 mg/dL (0.2-1); TOT PROT 4.8 g/dl (6.4-8.2)
[2024-01-05 20:38] LABS: INR 1.2 (0.83-1.09); PROTHROMBIN TIME (PATIENT) 13.9 SEC (9.7-13.0)
[2024-01-05 20:40] LABS: N-TERMINAL BNP 1051.6 pg/ml (5-450)
[2024-01-05 20:41] LABS: ACTIVATED PTT 29.2 SECONDS (25.2-36.5)
[2024-01-05] MEDS: DEXTROSE 5%-0.45% SALINE 1,000 ML IV SCH ×2 (21:43→23:00)
[2024-01-05] MEDS ORDERED: ONDANSETRON 4 MG/2 ML VIAL IVPUSH PRN (21:45)
[2024-01-05] MEDS ORDERED: DOXYCYCLINE HYCLATE 100 MG CAPSULE PO ONE (22:37)
[2024-01-05] MEDS ORDERED: MAGNESIUM SULFATE IN WATER 2 GM/50 ML IVPB IVPB ONE (22:37)
[2024-01-05] MEDS ORDERED: PANTOPRAZOLE SODIUM 40 MG VIAL ONE (22:37)
[2024-01-05] MEDS: PANTOPRAZOLE SODIUM 40 MG VIAL IVPUSH SCH (22:41)
[2024-01-05] MEDS: DOXYCYCLINE HYCLATE 100 MG CAPSULE PO ONE (22:41)
[2024-01-05] MEDS ORDERED: ACETAMINOPHEN 325 MG TABLET (FP) PO PRN (22:46)
[2024-01-05] MEDS: MAGNESIUM SULF 50% (8.12 MEQ/2 ML-1 GM VIAL) IVPB ONE (22:48)
[2024-01-05] MEDS ORDERED: PREGABALIN 100 MG CAPSULE ONE (22:58)
[2024-01-05] MEDS ORDERED: traZODone HCL 50 MG TABLET (FP) ONE (22:58)
[2024-01-05] MEDS: traZODone HCL 50 MG TABLET (FP) PO SCH (23:00)
[2024-01-05] MEDS: PREGABALIN 100 MG CAPSULE PO SCH (23:00)
[2024-01-06 04:08] VITALS: BMI 22.8
[2024-01-06] MEDS: DEXTROSE 5%-0.45% SALINE 1,000 ML IV SCH ×3 (06:47→13:20)
[2024-01-06 08:22] LABS: BASO % 0.5 % (0-2.0); EOS % 0.5 % (0-4.5); HEMATOCRIT 17.6 % (32.4-45.2); LYMPH % 22.3 % (8-40); MCH 28.2 pg (25.7-33.7); MEAN PLT VOLUME 7.7 fl (7.5-11.1); MONO % 14.6 % (3.8-10.2); NEUT % 62.1 % (42.8-82.8); PLATELET COUNT 189 10^3/uL (134-434); RBC 2.12 M/mm3 (3.60-5.2); WHITE BLOOD COUNT 4.1 K/mm3 (4.0-10.0)
[2024-01-06 08:49] LABS: ALBUMIN 1.9 g/dl (3.4-5.0); BLOOD UREA NITROGEN 56.8 mg/dL (7-18); CALCIUM 7.3 mg/dL (8.5-10.1)
[2024-01-06 08:52] LABS: CREATININE 0.6 mg/dL (0.55-1.3)
[2024-01-06 08:53] LABS: TOT PROT 4.4 g/dl (6.4-8.2)
[2024-01-06 08:54] LABS: BILIRUBIN,TOTAL 0.2 mg/dL (0.2-1)
[2024-01-06 09:02] LABS: POTASSIUM 4.1 mmol/L (3.5-5.1)
[2024-01-06] MEDS ORDERED: SODIUM CHLORIDE 1 GM TABLET PO SCH (10:00)
[2024-01-06] MEDS: BACLOFEN 10 MG TABLET (FP) PO SCH (11:24)
[2024-01-06] MEDS: PANTOPRAZOLE SODIUM 40 MG VIAL IVPUSH SCH (11:24)
[2024-01-06] MEDS: DOXYCYCLINE HYCLATE 100 MG CAPSULE PO SCH (11:25)
[2024-01-06] MEDS: ASCORBIC ACID 500 MG TABLET (FP) PO SCH (11:25)
[2024-01-06] MEDS: DOCUSATE SODIUM 100 MG CAPSULE (FP) PO SCH (11:25)
[2024-01-06] MEDS: CALCIUM 500MG/VIT-D 200 UNITS COMBO TABLET (FP) PO SCH (11:25)
[2024-01-06] MEDS: FLUoxetine HCL 20 MG CAPSULE PO SCH (11:25)
[2024-01-06] MEDS: LACTOBACILLUS ACIDOPHILUS 1 TABLET PO SCH (11:25)
[2024-01-06] MEDS: CHOLECALCIFEROL (VIT D3 5000 UNITS) 125 MCG TAB PO SCH (11:25)
[2024-01-06 12:28] LABS: EPI CELLS >36 /uL (0-25.1); HYALINE CASTS 0 /uL (0-3.1); PH,URINE 5.5 (5.0-8.0); URINE APPEARANCE CLOUDY; URINE BILIRUBIN NEGATIVE (NEGATIVE); URINE COLOR YELLOW; URINE GLUCOSE (UA) NEGATIVE (NEGATIVE); URINE KETONE NEGATIVE (NEGATIVE); URINE LEUK ESTERASE 1+ (NEGATIVE); URINE NITRITE NEGATIVE (NEGATIVE); URINE PROTEIN NEGATIVE (NEGATIVE); URINE RBC 17 /uL (0-23.9); URINE UROBILINOGEN 0.2 mg/dL (0.2-1.0); URINE WBC 13 /uL (0-25.8)
[2024-01-06] MEDS: POLYETHYLENE GLYCOL (HEALTHYLAX) 3350 17 GM PACKET PO SCH (13:20)
[2024-01-06 14:23] LABS: URINE BACTERIA 137 /uL (0-1359)
[2024-01-06 16:18] LABS: HEMATOCRIT 21.7 % (32.4-45.2); HEMOGLOBIN 7.5 GM/dL (10.7-15.3); MCH 28.1 pg (25.7-33.7); MCHC 34.4 g/dl (32.0-36.0); MEAN CELL VOLUME 81.8 fl (80-96); MEAN PLT VOLUME 7.6 fl (7.5-11.1); PLATELET COUNT 195 10^3/uL (134-434); RBC 2.66 M/mm3 (3.60-5.2); RDW 15.4 % (11.6-15.6); WHITE BLOOD COUNT 7.2 K/mm3 (4.0-10.0)
[2024-01-06] MEDS: ARTIFICIAL TEARS OPHTHALMIC DROPS OU SCH (19:05)
[2024-01-06] MEDS: PANTOPRAZOLE 40 MG TABLET PO SCH (22:42)
[2024-01-06] MEDS: MELATONIN 1 MG TABLET PO SCH (22:42)
[2024-01-06] MEDS: ATORVASTATIN CA 20 MG TABLET (FP) PO SCH (22:42)
[2024-01-06] MEDS: ALBUTEROL SO4 2.5/IPRATROPIUM 0.5 INH SOL 3 ML VIAL.NEB. NEB PRN (23:46)
[2024-01-07 08:17] LABS: BASO % 0.5 % (0-2.0); EOS % 1.4 % (0-4.5); HEMATOCRIT 22.7 % (32.4-45.2); HEMOGLOBIN 8.1 GM/dL (10.7-15.3); LYMPH % 21.4 % (8-40); MCH 28.6 pg (25.7-33.7); MCHC 35.7 g/dl (32.0-36.0); MEAN PLT VOLUME 7.5 fl (7.5-11.1); MONO % 11.9 % (3.8-10.2); NEUT % 64.8 % (42.8-82.8); PLATELET COUNT 162 10^3/uL (134-434); RBC 2.84 M/mm3 (3.60-5.2); RDW 16.3 % (11.6-15.6); WHITE BLOOD COUNT 3.4 K/mm3 (4.0-10.0)
[2024-01-07 08:19] LABS: CALCIUM 7.5 mg/dL (8.5-10.1)
[2024-01-07 08:22] LABS: CREATININE 0.6 mg/dL (0.55-1.3)
[2024-01-07 08:55] LABS: BLOOD UREA NITROGEN 30.8 mg/dL (7-18)
[2024-01-07] MEDS: morphine SO4 SUSTAINED ACTING 15 MG TABLET.SA PO SCH (11:33)
[2024-01-07] MEDS: BUDESONIDE/FORMETEROL FUMARATE 160/4.5 mcg INHALER IH SCH (12:00)
[2024-01-07] MEDS: IRON POLYSACCHARIDES 150 MG CAPSULE PO SCH (15:30)
[2024-01-08] MEDS ORDERED: CHOLECALCIFEROL (VIT D3) 5000 UNITS (125 MCG) CAP PO SCH (10:06)
[2024-01-08] MEDS: CHOLECALCIFEROL (VIT D3) 5000 UNITS (125 MCG) CAP PO SCH (10:08)
[2024-01-08] MEDS: SODIUM CHLORIDE 1,000 ML IV SCH (18:33)
[2024-01-08 19:51] LABS: BASO % 0.3 % (0-2.0); EOS % 0.8 % (0-4.5); HEMATOCRIT 22.2 % (32.4-45.2); HEMOGLOBIN 7.2 GM/dL (10.7-15.3); LYMPH % 11.4 % (8-40); MCHC 32.6 g/dl (32.0-36.0); MEAN CELL VOLUME 82.8 fl (80-96); MEAN PLT VOLUME 7.7 fl (7.5-11.1); MONO % 7.8 % (3.8-10.2); NEUT % 79.7 % (42.8-82.8); PLATELET COUNT 196 10^3/uL (134-434); RBC 2.68 M/mm3 (3.60-5.2); RDW 16.8 % (11.6-15.6); WHITE BLOOD COUNT 7.9 K/mm3 (4.0-10.0)
[2024-01-08 20:25] LABS: POTASSIUM 4.5 mmol/L (3.5-5.1)
[2024-01-08 20:27] LABS: CALCIUM 7.4 mg/dL (8.5-10.1)
[2024-01-08 20:28] LABS: BLOOD UREA NITROGEN 39.4 mg/dL (7-18); MAGNESIUM 1.6 mg/dL (1.8-2.4)
[2024-01-08 20:31] LABS: CREATININE 0.7 mg/dL (0.55-1.3)
[2024-01-08 20:32] LABS: BILIRUBIN,TOTAL 0.4 mg/dL (0.2-1); TOT PROT 4.7 g/dl (6.4-8.2)
[2024-01-08] MEDS: MAGNESIUM OXIDE 400 MG TABLET (FP) PO ONE ×2 (23:48→23:55)
[2024-01-09 09:02] LABS: POTASSIUM 4.8 mmol/L (3.5-5.1)
[2024-01-09 09:22] LABS: BLOOD UREA NITROGEN 40.7 mg/dL (7-18); CALCIUM 7.9 mg/dL (8.5-10.1); MAGNESIUM 1.8 mg/dL (1.8-2.4)
[2024-01-09 09:24] LABS: BASO % 0.3 % (0-2.0); HEMATOCRIT 23.7 % (32.4-45.2); LYMPH % 18.8 % (8-40); MCH 27.8 pg (25.7-33.7); MCHC 33.9 g/dl (32.0-36.0); MEAN CELL VOLUME 81.8 fl (80-96); MEAN PLT VOLUME 7.8 fl (7.5-11.1); MONO % 8.1 % (3.8-10.2); NEUT % 71.8 % (42.8-82.8); PLATELET COUNT 197 10^3/uL (134-434); RDW 16.5 % (11.6-15.6); WHITE BLOOD COUNT 5.3 K/mm3 (4.0-10.0)
[2024-01-09 09:25] LABS: CREATININE 0.5 mg/dL (0.55-1.3)
[2024-01-09 09:26] LABS: TOT PROT 4.6 g/dl (6.4-8.2)
[2024-01-09 09:27] LABS: BILIRUBIN,TOTAL 0.4 mg/dL (0.2-1)
[2024-01-09] MEDS: MECLIZINE HCL 12.5 MG TABLET PO PRN (10:33)
[2024-01-10 08:21] LABS: POTASSIUM 4.2 mmol/L (3.5-5.1)
[2024-01-10 08:24] LABS: ALBUMIN 1.9 g/dl (3.4-5.0); BLOOD UREA NITROGEN 47.1 mg/dL (7-18); MAGNESIUM 1.8 mg/dL (1.8-2.4)
[2024-01-10 08:26] LABS: CALCIUM 7.7 mg/dL (8.5-10.1)
[2024-01-10 08:27] LABS: CREATININE 0.5 mg/dL (0.55-1.3)
[2024-01-10 08:28] LABS: TOT PROT 4.2 g/dl (6.4-8.2)
[2024-01-10 08:29] LABS: BILIRUBIN,TOTAL 0.4 mg/dL (0.2-1)
[2024-01-10 09:43] LABS: HEMATOCRIT 18.1 % (32.4-45.2); MCH 27.8 pg (25.7-33.7); MEAN CELL VOLUME 81.9 fl (80-96); MEAN PLT VOLUME 8.1 fl (7.5-11.1); PLATELET COUNT 213 10^3/uL (134-434); RBC 2.21 M/mm3 (3.60-5.2); RDW 16.3 % (11.6-15.6); WHITE BLOOD COUNT 5.5 K/mm3 (4.0-10.0)
[2024-01-10 09:48] LABS: HEMOGLOBIN 6.2 GM/dL (10.7-15.3)
[2024-01-10 11:45] LABS: ANISOCYTOSIS 0; HELMET CELLS 0; HOWELL-JOLLY BODIES 0; MACROCYTOSIS 0; OVALOCYTE 0; ROULEAU 0; SICKELED CELLS 0; TARGET CELLS 0; TEAR DROP CELLS 0; TOXIC GRANULATION 0
[2024-01-10] MEDS: CEFTRIAXONE 1 GM in DEXTROSE 5%-WATER - 50 ML IVPB ONE (14:54)
[2024-01-11 08:51] LABS: BASO % 0.5 % (0-2.0); EOS % 1.6 % (0-4.5); HEMATOCRIT 24.9 % (32.4-45.2); HEMOGLOBIN 8.6 GM/dL (10.7-15.3); LYMPH % 13.4 % (8-40); MCH 28.7 pg (25.7-33.7); MCHC 34.4 g/dl (32.0-36.0); MEAN CELL VOLUME 83.4 fl (80-96); MEAN PLT VOLUME 8.4 fl (7.5-11.1); MONO % 9.6 % (3.8-10.2); NEUT % 74.9 % (42.8-82.8); PLATELET COUNT 199 10^3/uL (134-434); RBC 2.99 M/mm3 (3.60-5.2); RDW 15.8 % (11.6-15.6); WHITE BLOOD COUNT 8.6 K/mm3 (4.0-10.0)
[2024-01-11 09:10] LABS: POTASSIUM 4.3 mmol/L (3.5-5.1)
[2024-01-11 09:21] LABS: BLOOD UREA NITROGEN 32.9 mg/dL (7-18); MAGNESIUM 1.9 mg/dL (1.8-2.4)
[2024-01-11 09:22] LABS: ALBUMIN 2.1 g/dl (3.4-5.0)
[2024-01-11 09:24] LABS: CREATININE 0.5 mg/dL (0.55-1.3)
[2024-01-11 09:26] LABS: BILIRUBIN,TOTAL 0.5 mg/dL (0.2-1); TOT PROT 4.8 g/dl (6.4-8.2)
[2024-01-11] MEDS: MULTIVITAMINS (DAILY MVI) TABLET (FP) PO SCH (10:20)
[2024-01-11] MEDS: ACETAMINOPHEN 325 MG TABLET (FP) PO PRN (13:55)
[2024-01-11 14:15] VITALS: BP 105/61; PULSE 75; RESP 20; TEMP 99
== END 2024-01-11 14:30 | disposition home or self-care (01) | DRG 812 ==
LOC: JER 16:14 → JERBED 21:32 → J8W 01-06 02:20
PROVIDERS: ADMIT Internal Medicine; ATTEND Nurse Practitioner Family
PROC: 30233N1 Transfusion of Nonautologous Red Blood Cells into Peripheral Vein, Percutaneous Approach (ICD-10-PCS; principal; 2024-01-06)
DX: D50.9 Iron deficiency anemia, unspecified (principal); K92.2 Gastrointestinal hemorrhage, unspecified; E83.42 Hypomagnesemia; I10 Essential (primary) hypertension; E78.5 Hyperlipidemia, unspecified; E86.0 Dehydration; K21.9 Gastro-esophageal reflux disease without esophagitis; J45.909 Unspecified asthma, uncomplicated; E88.09 Other disorders of plasma-protein metabolism, not elsewhere classified; E77.8 Other disorders of glycoprotein metabolism; E83.51 Hypocalcemia
CPT/HCPCS: 0241U-QW; 36415; 36430; 36511; 71045-TC-FY; 73630-TC-LT; 80048; 80053; 81003; 82272; 82962; 83690; 83735; 83880; 84484; 85025; 85027; 85379; 85610; 85730; 86850; 86870; 86880; 86900; 86901; 86902; 86922; 87086; 87186; 93005; 93010; 94640; 97116-GP; 97161-GP; 99285-25; J0475; P9038; P9058